=== PATIENT | male | born 1955 | race Caucasian/White ===

== ENCOUNTER 2025-08-18 00:02 | Inpatient (IN) ==
--- NOTE | 2025-08-18 00:20 | Emergency Department Note ---
History of Present Illness General Chief complaint: Abdominal Pain Stated complaint: VOMITING, RIGHT SIDE PAIN IN RIB/ABD Time Seen by Provider: 08/18/25 00:07 History of Present Illness Maximum Pain Intensity: 8 This 69-year-old male that was recently admitted for sepsis from complicated UTI with positive blood cultures pansensitive to E. coli presents to ER complaining on ongoing generalized illness now with worsening right sided upper abdominal chest pain today. Patient also had an episode of vomiting. He has been taking his antibiotics. Patient denies fever, chills, cough, congestion, urinary symptoms, flank pain, diarrhea. He states he has not been feeling well since leaving the hospital. Home Medications Medication Instructions Recorded Confirmed Type tamsulosin 0.4 mg capsule 0.4 mg PO DAILY #30 caps 12/16/24 08/18/25 Rx lisinopril 20 1 tab PO DAILY 08/08/25 08/18/25 History mg-hydrochlorothiazide 12.5 mg tablet metoprolol succinate 100 mg 100 mg PO DAILY 08/08/25 08/18/25 History tablet,extended release 24 hr vedolizumab 300 mg intravenous 0 mg IV .[id number] 08/08/25 08/18/25 History solution amoxicillin 875 mg-potassium 1 tab PO BID 12 days #25 tabs 08/10/25 08/18/25 Rx clavulanate 125 mg tablet Allergies Allergy/AdvReac Type Severity Reaction Status Date / Time No Known Allergies Allergy Unknown NONE Verified 08/18/25 00:43 Past Med/Surg History Problem List Pneumonia (Acute) Ureterolithiasis (Acute) Acute hyponatremia (Acute) PRUDENCIO (acute kidney injury) (Acute) Renal colic on right side (Acute) E. coli bacteremia Acute hyponatremia (Acute) Hypomagnesemia (Acute) Acute kidney injury Sepsis (Acute) Complicated urinary tract infection (Acute) Ulcerative colitis Erectile dysfunction (Chronic) Benign prostatic hyperplasia (BPH) with straining on urination (Chronic) Elevated PSA (Chronic) DJD of right shoulder (Chronic) Lumbar stenosis with neurogenic claudication (Chronic) Medical History Hiatal hernia Surgical History History of back surgery Family History Father Cancer Mother Hypertension Brother Heart disease Social History Smoking Status: Never smoker Hx Alcohol Use: No Hx Substance Use: No Preferred Language: Upper Sorbian Beliefs That Will Affect Care: None Current Living Situation: Spouse current occupational status: retired Feels Safe at Home: Yes Assistive Devices: Denture - Upper and Denture - Lower Review of Systems A total of 10 systems reviewed and were otherwise negative Physical Exam Vital Signs Vital Signs - 24 hr 08/18/25 00:05 08/18/25 00:28 08/18/25 00:30 Temperature 37.1 C Temperature Source Temporal Artery Scan Pulse Rate 69 74 Respiratory Rate 16 Respiratory Effort / Characteristics Non-Labored Respiratory Depth Normal Blood Pressure 142/98 H Blood Pressure Mean 112 Pulse Oximetry 97 96 Oxygen Delivery Method Room Air Room Air Sepsis Recent Fever Within 48 Hours No Sepsis New/Unexplained Change in Mental Status No Sepsis Action Taken by Nursing No Action Required 08/18/25 00:30 08/18/25 01:00 08/18/25 01:30 Temperature Temperature Source Pulse Rate 72 73 66 Respiratory Rate 13 13 15 Respiratory Effort / Characteristics Respiratory Depth Blood Pressure 159/80 H 144/76 H 125/72 Blood Pressure Mean 106 98 89 Pulse Oximetry 98 95 Oxygen Delivery Method Room Air Sepsis Recent Fever Within 48 Hours Sepsis New/Unexplained Change in Mental Status Sepsis Action Taken by Nursing 08/18/25 02:00 08/18/25 02:30 08/18/25 03:00 Temperature Temperature Source Pulse Rate 66 64 66 Respiratory Rate 12 18 16 Respiratory Effort / Characteristics Respiratory Depth Blood Pressure 122/71 120/68 136/85 Blood Pressure Mean 88 85 102 Pulse Oximetry 95 94 98 Oxygen Delivery Method Sepsis Recent Fever Within 48 Hours Sepsis New/Unexplained Change in Mental Status Sepsis Action Taken by Nursing 08/18/25 03:30 Temperature Temperature Source Pulse Rate 65 Respiratory Rate 12 Respiratory Effort / Characteristics Respiratory Depth Blood Pressure 131/75 Blood Pressure Mean 93 Pulse Oximetry 95 Oxygen Delivery Method Sepsis Recent Fever Within 48 Hours Sepsis New/Unexplained Change in Mental Status Sepsis Action Taken by Nursing VITALS: Vitals are noted on the nurse's note and reviewed by myself. Vital signs stable. GENERAL: Pleasant gentleman, in no acute distress, nondiaphoretic, well- developed well-nourished. SKIN: The skin was without rashes, erythema, edema, or bruising. There is no tenting of the skin. Capillary reflex less than 2 seconds. HEAD: Normocephalic atraumatic. EARS: External auditory canals clear EYES: Pupils equal round and reactive to light and accommodation. Conjunctivae without injection, sclerae without icterus. Extraocular movements intact. NOSE: Patent, no discharge. MOUTH: Mucous membranes moist. Pharynx without erythema or exudate. Uvula midline. Airway patent. Tongue does not deviate. NECK: Supple without nuchal rigidity. No lymphadenopathy. No thyromegaly. Cervical spine is nontender. No JVD. HEART: Regular rate and rhythm LUNGS: Clear to auscultation bilaterally without wheezes, rales or rhonchi. No retractions or accessory muscle use. ABDOMEN: Positive bowel sounds x 4. Normal tympanic percussion. Soft, tender to palpation right upper quadrant, without masses or organomegaly. No guarding or rebound tenderness. No CVA tenderness MUSCULOSKELETAL: No muscle atrophy, erythema, or edema noted. NEURO: Patient was alert and oriented to person place and time. Normal sensation to light and sharp touch. No focal neurological deficits. Course Administered Medications Discontinued Medications Sodium Chloride (Nss) 1,000 mls @ 999 mls/hr IV .Q1H1M MARYAN Stop: 08/18/25 01:30 Last Infusion: 08/18/25 01:32 Dose: Infused Documented By: Admin: 08/18/25 00:31 Dose: 999 mls/hr Documented By: SUHAS Piperacillin Sod/Tazobactam Sod (Zosyn) 4.5 gm in 100 mls @ 200 mls/hr IV NOW STA Stop: 08/18/25 00:45 Last Infusion: 08/18/25 01:05 Dose: Infused Documented By: Admin: 08/18/25 00:35 Dose: 200 mls/hr Documented By: SUHAS Acetaminophen (Ofirmev) 1,000 mg in 100 mls @ 400 mls/hr IV NOW STA Stop: 08/18/25 00:30 Last Infusion: 08/18/25 00:50 Dose: Infused Documented By: Admin: 08/18/25 00:35 Dose: 400 mls/hr Documented By: SUHAS Vancomycin HCl 1,750 mg/ (Sodium Chloride) 535 mls @ 200 mls/hr IV NOW ONE Stop: 08/18/25 03:31 Last Infusion: 08/18/25 03:12 Dose: Infused Documented By: Admin: 08/18/25 01:46 Dose: 200 mls/hr Documented By: SUHAS Sodium Chloride (Nss) 500 mls @ 999 mls/hr IV .Q31M ONE Stop: 08/18/25 02:05 Last Infusion: 08/18/25 02:20 Dose: Infused Documented By: Admin: 08/18/25 01:47 Dose: 999 mls/hr Documented By: SUHAS Ioversol (Optiray 320 125ml) 125 ml IV ONCE ONE Stop: 08/18/25 00:54 Last Admin: 08/18/25 00:53 Dose: 118 ml Documented By: KEY Morphine Sulfate (Morphine Sulfate 4 Mg/Ml 1 Ml Carp\Vial) 4 mg IV NOW STA Stop: 08/18/25 00:17 Last Admin: 08/18/25 00:35 Dose: 4 mg Documented By: SUHAS Morphine Sulfate (Morphine Sulfate 4 Mg/Ml 1 Ml Carp\Vial) 4 mg IV NOW STA Stop: 08/18/25 03:04 Last Admin: 08/18/25 03:12 Dose: 4 mg Documented By: MEL Ondansetron HCl (Ondansetron Inj 2 Mg/Ml 2 Ml Vial) 4 mg IV NOW STA Stop: 08/18/25 00:17 Last Admin: 08/18/25 00:35 Dose: 4 mg Documented By: SUHAS Medical Decision Making Medical Records Attestation: I reviewed the patient's medical records. Home Medications Current Medication List: was personally reviewed by me Laboratory Data Attestation: I reviewed the patient's lab results. 08/18/25 00:25 08/18/25 00:25 Lab Results 08/18/25 08/18/25 08/18/25 Range/Units 00:25 00:28 00:34 WBC 18.91 H (4.8-10.8) K/ul RBC 4.78 (4.70-6.10) M/uL Hgb 13.8 L (14.0-18.0) g/dL POC Hgb 14.6 (14.0-18.0) g/dl Hct 40.0 L (42.0-52.0) % POC Hct 43 (42-52) % MCV 83.7 (80.0-100.0) fL MCH 28.9 (25.0-34.0) pg MCHC 34.5 (32.0-36.0) g/dL RDW Std Deviation 39.2 (36.4-46.3) fL RDW Coeff of Simran 12.9 (11.5-14.5) % Plt Count 488 H (130-400) K/uL MPV 8.7 L (9.4-12.4) fL Immature Gran % (Auto) 1.2 % Neut % (Auto) 87.6 % Lymph % (Auto) 6.0 % [place] % (Auto) 4.7 % Eos % (Auto) 0.2 % Baso % (Auto) 0.3 % Neut # (Auto) 16.55 H (1.40-6.50) K/uL Lymph # (Auto) 1.14 L (1.20-3.40) K/uL [place] # (Auto) 0.89 H (0.11-0.59) K/uL Eos # (Auto) 0.04 (0.00-0.50) K/uL Baso # (Auto) 0.06 (0.00-0.20) K/uL Immature Gran # (Auto) 0.23 H (0.01-0.20) K/uL POC Sodium 128 L (135-144) mmol/L Sodium 126 L (136-145) mmol/L POC Potassium 4.4 (3.3-5.0) mmol/L Potassium 4.2 (3.5-5.1) mmol/L POC Chloride 94 L (101-112) mmol/L Chloride 92 L (98-107) mmol/L Carbon Dioxide 25 (21-32) mmol/L POC Total CO2 25 (24-31) mmol/L Anion Gap 9 (3-11) POC Anion Gap 15.0 L (16-25) mmol/L POC BUN 26 H (7-18) mg/dl BUN 24 H (6-23) mg/dl Creatinine 1.73 H (0.6-1.4) mg/dl POC Creatinine 1.7 H (0.6-1.3) mg/dl Est Cr Clr Drug Dosing 44.2 ml/min eGFR 42.20 BUN/Creatinine Ratio 13.9 (10-20) Glucose 137 H (70-99(Fasting)) mg/dl POC Glucose (other) 131 H (70-99) mg/dl Osmolality 274 L (280-300) mOsm/kg Lactate 1.3 (0.4-2.0) mmol/L Calcium 9.8 (8.6-10.3) mg/dl POC Ioniz Calcium Lori 1.18 (1.12-1.32) mmol/l Phosphorus 3.5 (2.5-4.9) mg/dl Magnesium 1.9 (1.7-2.4) mg/dl Total Bilirubin 0.7 (0.2-1.0) mg/dl Direct Bilirubin 0.2 (0-0.2) mg/dl AST 18 (13-39) U/L ALT 26 (7-52) U/L Alkaline Phosphatase 123 H (34-104) U/L Troponin I High Sens 6.0 (0-20) pg/ml Total Protein 7.9 (6.0-8.3) gm/dl Albumin 3.7 (3.4-5.0) gm/dl Procalcitonin 0.32 (0-0.5) ng/ml Urine Color Yellow Urine Appearance Clear (Clear) Urine pH 6.5 (4.5-7.5) Ur Specific [place] 1.015 (1.000-1.030) Urine Protein Trace H (Negative) Urine Glucose (UA) Negative (Negative) Urine Ketones Negative (Negative) Urine Blood Trace H (Negative) Urine Nitrite Negative (Negative) Urine Bilirubin Negative (Negative) Urine Urobilinogen Negative (Negative) Ur Leukocyte Esterase Trace H (Negative) Urine WBC (Auto) 0-5 (0-5) /hpf Urine RBC (Auto) 0-2 (0-2) /hpf U Hyaline Cast (Auto) 0-2 (0-2) /lpf U Epithel Cells (Auto) 0-2 (0-2) /hpf Urine Bacteria (Auto) None Seen (None Seen) Urine Osmolality 536 (500-800) mOsm/kg Urine Comment SARS-CoV-2 (PCR) (Negative) Influenza Type A (PCR) (Neg) Influenza Type B (PCR) (Neg) RSV (RT-PCR) (Neg) 08/18/25 Range/Units 03:09 WBC (4.8-10.8) K/ul RBC (4.70-6.10) M/uL Hgb (14.0-18.0) g/dL POC Hgb (14.0-18.0) g/dl Hct (42.0-52.0) % POC Hct (42-52) % MCV (80.0-100.0) fL MCH (25.0-34.0) pg MCHC (32.0-36.0) g/dL RDW Std Deviation (36.4-46.3) fL RDW Coeff of Simran (11.5-14.5) % Plt Count (130-400) K/uL MPV (9.4-12.4) fL Immature Gran % (Auto) % Neut % (Auto) % Lymph % (Auto) % [place] % (Auto) % Eos % (Auto) % Baso % (Auto) % Neut # (Auto) (1.40-6.50) K/uL Lymph # (Auto) (1.20-3.40) K/uL [place] # (Auto) (0.11-0.59) K/uL Eos # (Auto) (0.00-0.50) K/uL Baso # (Auto) (0.00-0.20) K/uL Immature Gran # (Auto) (0.01-0.20) K/uL POC Sodium (135-144) mmol/L Sodium (136-145) mmol/L POC Potassium (3.3-5.0) mmol/L Potassium (3.5-5.1) mmol/L POC Chloride (101-112) mmol/L Chloride (98-107) mmol/L Carbon Dioxide (21-32) mmol/L POC Total CO2 (24-31) mmol/L Anion Gap (3-11) POC Anion Gap (16-25) mmol/L POC BUN (7-18) mg/dl BUN (6-23) mg/dl Creatinine (0.6-1.4) mg/dl POC Creatinine (0.6-1.3) mg/dl Est Cr Clr Drug Dosing ml/min eGFR BUN/Creatinine Ratio (10-20) Glucose (70-99(Fasting)) mg/dl POC Glucose (other) (70-99) mg/dl Osmolality (280-300) mOsm/kg Lactate (0.4-2.0) mmol/L Calcium (8.6-10.3) mg/dl POC Ioniz Calcium Lori (1.12-1.32) mmol/l Phosphorus (2.5-4.9) mg/dl Magnesium (1.7-2.4) mg/dl Total Bilirubin (0.2-1.0) mg/dl Direct Bilirubin (0-0.2) mg/dl AST (13-39) U/L ALT (7-52) U/L Alkaline Phosphatase (34-104) U/L Troponin I High Sens (0-20) pg/ml Total Protein (6.0-8.3) gm/dl Albumin (3.4-5.0) gm/dl Procalcitonin (0-0.5) ng/ml Urine Color Urine Appearance (Clear) Urine pH (4.5-7.5) Ur Specific [place] (1.000-1.030) Urine Protein (Negative) Urine Glucose (UA) (Negative) Urine Ketones (Negative) Urine Blood (Negative) Urine Nitrite (Negative) Urine Bilirubin (Negative) Urine Urobilinogen (Negative) Ur Leukocyte Esterase (Negative) Urine WBC (Auto) (0-5) /hpf Urine RBC (Auto) (0-2) /hpf U Hyaline Cast (Auto) (0-2) /lpf U Epithel Cells (Auto) (0-2) /hpf Urine Bacteria (Auto) (None Seen) Urine Osmolality (500-800) mOsm/kg Urine Comment SARS-CoV-2 (PCR) NEGATIVE (Negative) Influenza Type A (PCR) Negative (Neg) Influenza Type B (PCR) Negative (Neg) RSV (RT-PCR) Negative (Neg) Imaging Data Attestation: I personally reviewed and interpreted this imaging study as follows: Radiologist's Impression: Abdomen/Pelvis CT 08/18/25 00:16 EXAM: CT abd pelvis IV con only CLINICAL HISTORY: right abd pain, recent urosepsis TECHNIQUE: Multiple contiguous axial images were obtained from the level of diaphragm to the pubis symphysis. This study was acquired after the IV administration of iodinated contrast material, given the patient's indications for the examination. If IV contrast material had not been administered, the likelihood of detecting abnormalities relevant to the patient's condition would have been substantially decreased. Coronal and sagittal reformatted images were generated and reviewed to improve anatomic localization and optimize lesion detection. CT scan was performed according to ALARA (as low as reasonably achievable). COMPARISON: 08/08/2025 FINDINGS: The visualized lung bases are clear. ABDOMEN/PELVIS: The liver is normal in size and attenuation. No focal liver lesions are seen. There is no intra or extrahepatic biliary ductal dilatation. Hepatic vasculature is patent. The gallbladder is unremarkable. The spleen, pancreas, and adrenal glands are unremarkable. The kidneys are normal in size and attenuation. There is no hydronephrosis or perinephric fat stranding on left side. No renal masses are identified. The ureters are normal in caliber and no ureteral calculi are seen. Sliding hiatal hernia with sliding of omental into mediastinum. Fat containing bilateral inguinal hernias, more so on left side. A partially distended urinary bladder with diffuse mural wall thickening with mild perivascular fat stranding - likely appliance service representative of an ongoing infective etiology, suggest lab correlation. Evidence of an approximately 7.8 x 5.4 mm radiodense calculus in right pelviureteric junction with mild right hydronephrosis and perinephric fat stranding - suggestive of obstructive pelviureteric junction calculus with mild back pressure changes. Approximately 9.4 mm calculus noted in lower pole of left kidney. Tiny subcentimetric hypodense cysts are noted in bilateral kidneys. No evidence of focal or diffuse bowel wall thickening or evidence of bowel obstruction is seen. No features of appendicitis. Pelvic viscera are unremarkable No adenopathy or fluid collections are seen. The aorta is normal in caliber. No aggressive appearing osseous lesions are identified. Degenerative changes in visualised spine.stable. Post operative changes in lower spine. IMPRESSION: Sliding hiatal hernia with sliding of omental into mediastinum.stable Fat containing bilateral uncomplicated inguinal hernias, more so on left side.stable A partially distended urinary bladder with diffuse mural wall thickening with mild perivascular fat stranding - likely appliance service representative of an ongoing infective etiology, suggest lab correlation. Evidence of an approximately 7.8 x 5.4 mm radiodense calculus in right pelviureteric junction with mild right hydronephrosis and perinephric fat stranding - suggestive of obstructive pelviureteric junction calculus with mild back pressure changes.new finding Approximately 9.4 mm calculus noted in lower pole of left kidney.stable Tiny subcentimetric hypodense cysts are noted in bilateral kidneys.stable Electronically signed by Josias Perez 08-18-2025 02:45 AM Chest CTA 08/18/25 00:16 EXAM: CT angio chest PE protocol CLINICAL HISTORY: PE TECHNIQUE: Contiguous axial images were obtained from the neck base through the upper abdomen following intravenous administration of iodinated contrast material. Angiographic images were processed, 3D MIP images were acquired for interpretation. If IV contrast material had not been administered, the likelihood of detecting abnormalities relevant to the patient's condition would have been substantially decreased. Coronal and sagittal 3-D MIPs were likewise performed and indicated to increase the sensitivity of detectin diffuse clinically relevant pathology. CT scan was performed according to ALARA (as low as reasonably achievable). COMPARISON: None. FINDINGS: Adequate contrast bolus without evidence of pulmonary embolism. The central airways are patent. Few subcentimetric calcifications in left upper and bilateral lower lobes A patchy area of subpleural soft tissue opacity in right upper lobe with tiny ground glass opacities adjacnet to it- could be of infective etiology Few bibasal atelectasis bands Rest of the lungs are clear. No pleural effusion. The heart, aorta, and pulmonary arteries are of normal size and configuration. There are coronary artery and aortic atherosclerotic calcifications. No pericardial effusion is identified. The thyroid is unremarkable. Few mildly enlarged mediastinal and hilar lymphnodes noted, largest measuring ~[id number] in precarinal region and few of them shows calcifications within No axillary lymphadenopathy is noted. No suspicious lytic or sclerotic osseous lesions are identified. Degenerative changes in visualised spine Sliding hiatal hernia IMPRESSION: No evidence of pulmonary embolism A patchy area of subpleural soft tissue opacity in right upper lobe with tiny ground glass opacities adjacnet to it- could be of infective etiology. Few bibasal atelectasis bands Few mildly enlarged mediastinal and bilateral hilar lymphnodes noted, largest measuring ~[id number] in precarinal region and few of them shows calcifications within. Few subcentimetric calcifications in left upper and bilateral lower lobes Electronically signed by Josias Perez 08-18-2025 02:49 AM Chest X-Ray 08/18/25 00:16 EXAM: XR chest 1V portable CLINICAL HISTORY: Sepsis TECHNIQUE: An X-ray image of the chest is obtained in AP projection. COMPARISON: 08/08/2025. FINDINGS: Pulmonary Parenchyma: Multiple nodules were noted at the left mid and upper lung zones, less than 5 mm in diameter. No evidence of consolidation or collapse. No evidence of pleural effusion or pleural thickening. Heart and Mediastinum: Heart size and shape are normal. No mediastinal widening or masses. No hilar or mediastinal lymphadenopathy. Bony Thorax: Bony thorax appears intact without fractures or deformities. 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 Soft Tissues: Soft tissues overlying the chest wall are unremarkable. IMPRESSION: 1. No acute cardiopulmonary abnormalities are identified. 2. Multiple calcified nodules were noted at the left mid and upper lung zones, less than 5 mm in diameter. Unchanged. These are benign. 3. No significant interval changes are noted compared with the prior study. Electronically signed by Gurnider Mcfarlane 08-18-2025 02:34 AM MDM Narrative Prior records/ancillary studies reviewed. Triage Nursing notes reviewed. Additional history obtained from family. The patient's history was concerning for abdominal pain with recent bacteremia and sepsis from UTI. Differential diagnosis: Etiologies such as sepsis, bacteremia, pulmonary, cardiac, appendicitis, diverticulitis, PUD, biliary pathology, UTI, pancreatitis, obstruction, mesenteric ischemia, aortic pathology, infections, inflammatory bowel disease, renal colic, as well as others were entertained. Physical examination findings: As above. ER treatment provided: An order was placed for continuous cardiac monitoring. The monitor shows a rate of 60-100 with a sinus rhythm per my Independent interpretation. Zosyn, Zofran, Tylenol, morphine, IV fluids were ordered Vancomycin was added and as patient had a leukocytosis which is new from discharge for possible MRSA infection with recent hospitalization On reassessment the patient felt better. Diagnostics interpreted by me: ECG: Ordered for weakness EKG: Normal sinus, normal intervals, no acute ST-T wave changes, rate of 69. Impression normal sinus rhythm independently interpreted by myself I think arrhythmia is unlikely. EKG shows normal sinus rhythm with no interval abnormalities such as QT prolongation or WPW. There are no findings to suggest Brugada syndrome. Cardiac monitoring in the emergency department reveals no tachycardic or bradycardic dysrhythmia. Hypertrophic cardiomyopathy was considered but there are no clear historical elements pointing toward this. EKG is not suggestive. The QRS voltage is not extremely large and there are no suggestive Q waves. The labs Independently Interpreted by myself revealed leukocytosis, hyponatremia and osmolarity levels were sent, creatinine slightly elevated from baseline and patient was hydrated as above neg lactic neg UA neg covid/flu Blood cultures pending [facility] [address] [place] [address] / Director: Cheryl Almeida M.D. Clinical Laboratory Report Name: JOE GOTTLIEB Acct: [id number] Status: [place] : 1955 [facility] [place] 10[place]09[place] Age: 69 Sex: M Dis Date: 10/11/24 Loc: [address] Rm/Bed: [facility] Spec: [id number] Collected: 08/08/25-1207 Received: 08/08/25-[address]: Renato Cook M.D. Source: Blood OV Order: Ordered: Blood Culture Procedure Result Verified Site Blood Culture Aerobic Final 08/10/25-1006 Organism 1 Escherichia coli Sens Sensitivities to Follow Blood Culture PCR Panel If viewing in EMR, results available under LAB Serology tab. Phoned positive Blood Culture Gram Stain report to RIZWANA CLEMONS on 08/09/25 at 0029 by [id number]. [place] [id number]. E coli RX M.I.C. --- --------- Amikacin S <=16 Amox/Clav S <=8/4 Ampicillin S <=8 Amp/Sul S <=4/2 Cefazolin S <=2 Cefepime S <=2 Cefotaxime S <=2 Cefoxitin S <=8 Ceftriaxone S <=1 Cefuroxime S <=4 Ciprofloxacin S <=0.25 Ertapenem S <=0.5 Gentamicin S <=2 Levofloxacin S <=0.5 Meropenem S <=1 Tobramycin S <=2 Trimeth/Sulfa S <=0.5/9.5 Pip/Tazo S <=8 S = SENSITIVE I = INTERMEDIATE R = RESISTANT Blood Culture Anaerobic Final 08/10/25-1006 Organism 1 Escherichia coli Sens No Sensitivities to Follow [address], [place] [address] / Director: Cheryl Almeida M.D. Clinical Laboratory Report Name: JOE GOTTLIEB Acct: [id number] Status: DIS [place] : 1955 [facility] [place] 1 10/09/24 Age: 69 Sex: M Dis Date: 10/11/24 Loc: [address]/Bed: N[facility] Spec: [id number] Collected: 08/08/25-UNK Received: 08/08/25-[address]: Renato Cook M.D. Source: Urine,Clean Catch OV Order: Ordered: Urine Culture Procedure Result Verified Site Urine Culture Final 08/10/25-0857 Organism 1 Escherichia coli [place] Count >100,000 CFU/ml Sens Sensitivities to Follow E coli RX M.I.C. --- --------- Amikacin S <=16 Amox/Clav S <=8/4 Ampicillin S <=8 Amp/Sul S <=4/2 Cefazolin S <=2 Cefepime S <=2 Cefotaxime S <=2 Cefoxitin S <=8 Ceftriaxone S <=1 Cefuroxime S <=4 Ciprofloxacin S <=0.25 Ertapenem S <=0.5 Gentamicin S <=2 Levofloxacin S <=0.5 Meropenem S <=1 Nitrofurantoin S <=32 Tobramycin S <=2 Trimeth/Sulfa S <=0.5/9.5 Pip/Tazo S <=8 S = SENSITIVE I = INTERMEDIATE R = RESISTANT Imaging studies: Imaging was reviewed and read by radiology Consultation: A consultation was placed with the hospitalist. The case was discussed and diagnostics were reviewed. The patient was evaluated in the ER for further treatment. Consultation was placed with urology and TIMOTHY Markus did evaluate the patient. Patient was admitted to the medical service. Exam and history seem consistent with recent bacteremia with an active kidney stone and possible developing pneumonia. Patient also had a mild PRUDENCIO and leukocytosis with a shift. He was given antibiotics upon initial evaluation with his recent bacteremia. Medicine was consultedand the case was discussed. He will be evaluated for admission. By the evaluation outlined above emergent etiologies such as appendicitis, diverticulitis, PUD, biliary pathology pancreatitis, obstruction, mesenteric ischemia, aortic pathology, inflammatory bowel disease as well as others were deemed relatively unlikely. The pt informed about the findings as listed above. All questions were answered and pleased with the treatment. The chart was completed utilizing [email or web address] Speech voice recognition software. Grammatical errors, random word insertions, pronoun errors, and incomplete sentences are an occassional consequence of this system due to software limitations, ambient noise, and hardware issues. Any formal questions or concerns about the content, text, or information contained within the body of this dictation should be directly addressed to the physician assistant public defender for clarification. Impression & Plan Renal colic on right side, PRUDENCIO (acute kidney injury), Acute hyponatremia, Ureterolithiasis, Pneumonia Discharge Plan Visit Data Chief Complaint: Abdominal Pain Stated Complaint: VOMITING, RIGHT SIDE PAIN IN RIB/ABD ED Provider: Amarjit Ratl[facility] ED Midlevel Provider: Katy Mazariegos Discharge Problem: Renal colic on right side, PRUDENCIO (acute kidney injury), Acute hyponatremia, Ureterolithiasis, Pneumonia Patient Disposition: Admitted As Inpatient Condition: Fair Forms Stand Alone Forms: My [facility] Qire Prescriptions Prescriptions: No Action tamsulosin 0.4 mg capsule 0.4 mg PO DAILY Qty: 30 11RF lisinopril-hydrochlorothiazide 20-12.5 mg tablet 1 tab PO DAILY metoprolol succinate 100 mg tablet extended release 24 hr 100 mg PO DAILY vedolizumab 300 mg Recon Soln 0 mg IV .[id number] amoxicillin-pot clavulanate 875-125 mg tablet 1 tab PO BID 12 Days Qty: 25 0RF Rx Instructions: STARTED 08/10/25 FOR 12 DAYS. Referrals Referrals: Kenny Najera [Primary Care Provider] -
[2025-08-18] MEDS: SODIUM CHLORIDE 0.9% 1,000 ML IV SCH (00:31)
[2025-08-18] MEDS: PIPERACILLIN/TAZOBACTAM 4.5 GM/100 ML BAG IV STA (00:35)
[2025-08-18] MEDS: MoRPHine SULFATE 4 MG/ML 1 ML CARP\\VIAL IV STA ×2 (00:35→03:12)
[2025-08-18] MEDS: ACETAMINOPHEN 1,000 MG/100 ML VIAL IV STA (00:35)
[2025-08-18] MEDS: ONDANSETRON INJ 2 MG/ML 2 ML VIAL IV STA (00:35)
[2025-08-18 00:48] LABS: Appearance Urine Clear (Clear); Bacteria Urine Automated None Seen (None Seen); Cast Urine Automated 0-2 /lpf (0-2); Epithelial Cell Urine Auto 0-2 /hpf (0-2); Glucose Urine UA Negative (Negative); RBC Urine Automated 0-2 /hpf (0-2); WBC Urine Automated 0-5 /hpf (0-5)
[2025-08-18 00:49] LABS: Hematocrit (blood only) 40.0 % (42.0-52.0); Hemoglobin 13.8 g/dL (14.0-18.0); Immature Granulocytes # (auto) 0.23 K/uL (0.01-0.20); Immature Granulocytes % (auto) 1.2 %; Mean Corpuscular Hemoglobin 28.9 pg (25.0-34.0); Mean Corpuscular Volume 83.7 fL (80.0-100.0); Platelet Count 488 K/uL (130-400); RDW Standard Deviation 39.2 fL (36.4-46.3); Red Blood Count 4.78 M/uL (4.70-6.10); White Blood Count 18.91 K/ul (4.8-10.8)
[2025-08-18] MEDS ORDERED: VANCOMYCIN CONSULT ACTIVE PRN (00:51)
[2025-08-18] MEDS: OPTIRAY 320 125ml IV ONE (00:53)
[2025-08-18 01:19] LABS: Alanine Aminotransferase 26.0 U/L (7-52); Albumin Level 3.7 gm/dl (3.4-5.0); Alkaline Phosphatase 123.0 U/L (34-104); Anion Gap 9.0 (3-11); Bilirubin,Total 0.7 mg/dl (0.2-1.0); Blood Urea Nitrogen 24.0 mg/dl (6-23); Calcium 9.8 mg/dl (8.6-10.3); Carbon Dioxide 25.0 mmol/L (21-32); Chloride 92.0 mmol/L (98-107); Creatinine Clr Calc Pharmacy 44.2 ml/min; Glucose 137.0 mg/dl (70-99(Fasting)); Magnesium 1.9 mg/dl (1.7-2.4); Potassium 4.2 mmol/L (3.5-5.1); Sodium 126.0 mmol/L (136-145); Total Protein 7.9 gm/dl (6.0-8.3)
[2025-08-18] MEDS: VANCOMYCIN HCL 1,750 MG in SODIUM CHLORIDE 0.9% 500 ML IV ONE (01:46)
[2025-08-18] MEDS: SODIUM CHLORIDE 0.9% 500 ML IV ONE (01:47)
--- NOTE | 2025-08-18 02:35 | XRay Report ---
EXAM: XR chest 1V portable CLINICAL HISTORY: Sepsis TECHNIQUE: An X-ray image of the chest is obtained in AP projection. COMPARISON: 08/08/2025. FINDINGS: Pulmonary Parenchyma: Multiple nodules were noted at the left mid and upper lung zones, less than 5 mm in diameter. No evidence of consolidation or collapse. No evidence of pleural effusion or pleural thickening. Heart and Mediastinum: Heart size and shape are normal. No mediastinal widening or masses. No hilar or mediastinal lymphadenopathy. Bony Thorax: Bony thorax appears intact without fractures or deformities. 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 Soft Tissues: Soft tissues overlying the chest wall are unremarkable. IMPRESSION: 1. No acute cardiopulmonary abnormalities are identified. 2. Multiple calcified nodules were noted at the left mid and upper lung zones, less than 5 mm in diameter. Unchanged. These are benign. 3. No significant interval changes are noted compared with the prior study. Electronically signed by Gurinder Mcfarlane 08-18-2025 02:34 AM
--- NOTE | 2025-08-18 02:46 | CT Scan Report ---
EXAM: CT abd pelvis IV con only CLINICAL HISTORY: right abd pain, recent urosepsis TECHNIQUE: Multiple contiguous axial images were obtained from the level of diaphragm to the pubis symphysis. This study was acquired after the IV administration of iodinated contrast material, given the patient's indications for the examination. If IV contrast material had not been administered, the likelihood of detecting abnormalities relevant to the patient's condition would have been substantially decreased. Coronal and sagittal reformatted images were generated and reviewed to improve anatomic localization and optimize lesion detection. CT scan was performed according to ALARA (as low as reasonably achievable). COMPARISON: 08/08/2025 FINDINGS: The visualized lung bases are clear. ABDOMEN/PELVIS: The liver is normal in size and attenuation. No focal liver lesions are seen. There is no intra or extrahepatic biliary ductal dilatation. Hepatic vasculature is patent. The gallbladder is unremarkable. The spleen, pancreas, and adrenal glands are unremarkable. The kidneys are normal in size and attenuation. There is no hydronephrosis or perinephric fat stranding on left side. No renal masses are identified. The ureters are normal in caliber and no ureteral calculi are seen. Sliding hiatal hernia with sliding of omental into mediastinum. Fat containing bilateral inguinal hernias, more so on left side. A partially distended urinary bladder with diffuse mural wall thickening with mild perivascular fat stranding - likely small business representative of an ongoing infective etiology, suggest lab correlation. Evidence of an approximately 7.8 x 5.4 mm radiodense calculus in right pelviureteric junction with mild right hydronephrosis and perinephric fat stranding - suggestive of obstructive pelviureteric junction calculus with mild back pressure changes. Approximately 9.4 mm calculus noted in lower pole of left kidney. Tiny subcentimetric hypodense cysts are noted in bilateral kidneys. No evidence of focal or diffuse bowel wall thickening or evidence of bowel obstruction is seen. No features of appendicitis. Pelvic viscera are unremarkable No adenopathy or fluid collections are seen. The aorta is normal in caliber. No aggressive appearing osseous lesions are identified. Degenerative changes in visualised spine.stable. Post operative changes in lower spine. IMPRESSION: Sliding hiatal hernia with sliding of omental into mediastinum.stable Fat containing bilateral uncomplicated inguinal hernias, more so on left side.stable A partially distended urinary bladder with diffuse mural wall thickening with mild perivascular fat stranding - likely small business representative of an ongoing infective etiology, suggest lab correlation. Evidence of an approximately 7.8 x 5.4 mm radiodense calculus in right pelviureteric junction with mild right hydronephrosis and perinephric fat stranding - suggestive of obstructive pelviureteric junction calculus with mild back pressure changes.new finding Approximately 9.4 mm calculus noted in lower pole of left kidney.stable Tiny subcentimetric hypodense cysts are noted in bilateral kidneys.stable Electronically signed by Josias Perez 08-18-2025 02:45 AM
--- NOTE | 2025-08-18 02:49 | CT Scan Report ---
EXAM: CT angio chest PE protocol CLINICAL HISTORY: PE TECHNIQUE: Contiguous axial images were obtained from the neck base through the upper abdomen following intravenous administration of iodinated contrast material. Angiographic images were processed, 3D MIP images were acquired for interpretation. If IV contrast material had not been administered, the likelihood of detecting abnormalities relevant to the patient's condition would have been substantially decreased. Coronal and sagittal 3-D MIPs were likewise performed and indicated to increase the sensitivity of detectin diffuse clinically relevant pathology. CT scan was performed according to ALARA (as low as reasonably achievable). COMPARISON: None. FINDINGS: Adequate contrast bolus without evidence of pulmonary embolism. The central airways are patent. Few subcentimetric calcifications in left upper and bilateral lower lobes A patchy area of subpleural soft tissue opacity in right upper lobe with tiny ground glass opacities adjacnet to it- could be of infective etiology Few bibasal atelectasis bands Rest of the lungs are clear. No pleural effusion. The heart, aorta, and pulmonary arteries are of normal size and configuration. There are coronary artery and aortic atherosclerotic calcifications. No pericardial effusion is identified. The thyroid is unremarkable. Few mildly enlarged mediastinal and hilar lymphnodes noted, largest measuring ~[id number] in precarinal region and few of them shows calcifications within No axillary lymphadenopathy is noted. No suspicious lytic or sclerotic osseous lesions are identified. Degenerative changes in visualised spine Sliding hiatal hernia IMPRESSION: No evidence of pulmonary embolism A patchy area of subpleural soft tissue opacity in right upper lobe with tiny ground glass opacities adjacnet to it- could be of infective etiology. Few bibasal atelectasis bands Few mildly enlarged mediastinal and bilateral hilar lymphnodes noted, largest measuring ~[id number] in precarinal region and few of them shows calcifications within. Few subcentimetric calcifications in left upper and bilateral lower lobes Electronically signed by Josias Perez 08-18-2025 02:49 AM
--- NOTE | 2025-08-18 03:16 | History & Physical Report ---
Date of Service August 18, 2025 Assessment & Plan (1) Hydronephrosis with obstructing calculus: (2) PRUDENCIO (acute kidney injury): (3) Hyponatremia: (4) Pneumonia: Plan 69-year-old male PMHx lumbar stenosis with claudication, BPH, ED, UC, recent E. coli bacteremia, and recent sepsis presenting for R sided abdominal pain. Most recent hospital admission 08/08/2025. Evaluation significant for evidence of leukocytosis with normal lactate and procal. Hyponatremia noted. Renal functions are elevated. Imaging suggest ? PNA developing as well as R sided hydronephrosis with perinephric fat stranding. Admission for pain management, IV abx, management PRUDENCIO and hyponatremia. #Hydronephrosis/Perinephric fat stranding/PRUDENCIO RUQ/R flank pain starting day of arrival. Recent sepsis from UTI, also E. coli bacteremic during hospital admission 08/08/2025 until 08/10/2025. Been taking Augmentin since discharge for completed course of treatment. No LUTS. Perinephric fat stranding noted, ? 2/2 obstruction versus developing pyelonephritis. Will cover with IV antibiotics regardless. Admission also for further pain control, as well as PRUDENCIO. - CBC WBC 18.91; CMP creatinine 1.73, BUN 24; lactate 1.3; procalcitonin 0.32 - BMP am - UA negative for infection - CTAP partially distended urinary bladder wall thickening and mild perivascular fat stranding, calculus R pelvic ureteric junction and mild right hydronephrosis and perinephric fat stranding, calculus lower pole L kidney - NPO - IVF LR @ 125 mL/hr - Zofran prn N/V - Acetaminophen prn fever/pain, morphine prn severe pain - Zosyn IV - continue - Urology consulted - appreciate input + recs #Hyponatremia Decreased intake recently and illness. In setting of PRUDENCIO. - Na 126, glucose 137 - Serum osmol 274, Urine Na pending, Urine Osmol 536 - Hold lisinopril-HCTZ - NaCl tablets 1 g po BID initiated - IVF as above #? PNA Patient with nonproductive cough starting day after his most recent discharge. No history of COVID. No additional URI symptoms, no F/C. ? PNA. - CBC leukocytosis 18.91, lactate 1.3, procalcitonin 0.32 - COVID/flu/RSV negative - CXR no acute findings, calcified nodules left mid and upper lung zones (benign, unchanged) - Chest CTA no PE, patchy area subpleural soft tissue opacity RUL with ground glass opacities (+/- infective), bibasal atelectatic bands, few calcifications left upper and bilateral lower lobes - IS - DuoNebs prn - Abx as above - adjust as appropriate #HTN- Lisinopril-HCTZ, metoprolol - hold lisinopril-HCTZ at time of admission, continue metoprolol #BPH- Tamsulosin - continue #UC- Vedolizumab [id number] Dispo: Admit, PCU VTE Prophylaxis: SCDs This document was dictated utilizing [employer]. Please excuse any grammatical errors that may be secondary to use of this software. Admission and Anticipated Discharge Date Admission Date: 08/18/2025 History of Present Illness Chief Complaint: Abd pain Primary Care Provider: Kenny Najera 69-year-old male PMHx lumbar stenosis with claudication, BPH, ED, UC, recent E. coli bacteremia, and recent sepsis presenting for R sided abdominal pain. Most recent hospital admission 08/08/2025. Reports onset of abdominal pain in the RUQ/R flank starting night of arrival. States that it started to wrap around to his back. Rates it a 10 out of 10 at its worst on the pain scale, currently 3 out of 10 on the pain scale. Describes it as sharp pain that is constant. He did have nausea all day and 1 episode of vomiting. No fever or chills, no change in bowel habits. He is without LUTS. He is still taking his antibiotics which were prescribed at discharge. Reports that he is coughing, no sputum production. No URI symptoms. The cough started the day after he was discharged from the hospital most recently. Without chest pain, SOB, palpitations, diarrhea/constipation, URI symptoms, LUTS, numbness/tingling, fever/chills, syncope, weakness, or falls. ED evaluation reveals CBC leukocytosis 18.91, H/H 13.8/40.0, plt 488; CMP Na 126, Cl 92, BUN 24, Cr 1.73, glucose 137, alk phos 123; lactate 1.3, procal 0.32; Mg 1.9, Ca 9.8, Phosphorus 3.5; serum osmol 274, urine osmol 536; UA without infection; CXR no acute findings, multiple calcified nodules L mid and upper lungs (benign, unchanged); Chest CTA no PE, RUL patchy area of subpleural soft tissue opacity (? infectious), bibasilar atelectatic bands, enlarged mediastinal/bilateral hilar lymph nodes with some calcifications within, few subcentimetric calcifications L upper and bilateral lower lobes; CTAP sliding hiatal hernia (stable), uncomplicated bilateral inguinal hernias L > R (stable), partially distended urinary bladder/thickening/perivascular fat stranding (infective, ongoing), calculus in R pelviureteric junction mild R hydronephrosis and perinephric fat stranding, calculus lower pole L kidney, hypodense cysts bilateral kidneys (stable).; Provided with 1.5L NSS, Zosyn 4.5g IV, Zofran 4mg IV, morphine 4mg IV x 2, and acetaminophen 1g IV in ED. Please see Dr. Thompson's attestation for adjustments/additions to treatment plan. Allergies Allergy/AdvReac Type Severity Reaction Status Date / Time No Known Allergies Allergy Unknown NONE Verified 08/18/25 12:34 Home Medications Medication Instructions Recorded Confirmed Type tamsulosin 0.4 mg capsule 0.4 mg PO DAILY #30 caps 12/16/24 08/18/25 Rx lisinopril 20 1 tab PO DAILY 08/08/25 08/18/25 History mg-hydrochlorothiazide 12.5 mg tablet metoprolol succinate 100 mg 100 mg PO DAILY 08/08/25 08/18/25 History tablet,extended release 24 hr vedolizumab 300 mg intravenous 0 mg IV .[id number] 08/08/25 08/18/25 History solution amoxicillin 875 mg-potassium 1 tab PO BID 12 days #25 tabs 08/10/25 08/18/25 Rx clavulanate 125 mg tablet Past Med/Surg History Problem List (Updated 08/18/25 @ 12:43 by Brayan Small DO) Encounter for pre-operative examination Renal calculus, left Hyponatremia Hydronephrosis with obstructing calculus Pneumonia (Acute) Ureterolithiasis (Acute) Acute hyponatremia (Acute) PRUDENCIO (acute kidney injury) (Acute) Renal colic on right side (Acute) E. coli bacteremia Acute hyponatremia (Acute) Hypomagnesemia (Acute) Acute kidney injury Sepsis (Acute) Complicated urinary tract infection (Acute) Ulcerative colitis Erectile dysfunction (Chronic) Benign prostatic hyperplasia (BPH) with straining on urination (Chronic) Elevated PSA (Chronic) DJD of right shoulder (Chronic) Lumbar stenosis with neurogenic claudication (Chronic) Medical History Hiatal hernia Surgical History History of back surgery Family History Father Cancer Mother Hypertension Brother Heart disease Social History Smoking Status: Never smoker Hx Alcohol Use: No Hx Substance Use: No Preferred Language: Afghan Communication Ability: Effective Sole Skiver Required: No Beliefs That Will Affect Care: None Current Living Situation: Spouse current occupational status: retired Other Information That Helps Us Care for You: No Feels Safe at Home: Yes Safety Concerns: Feels Safe At This Time Assistive Devices: Denture - Upper and Denture - Lower Review of Systems Review of Systems: All systems reviewed & are unremarkable except as noted in Subjective Physical Exam Physical Exam: General: No acute distress Skin: Warm and dry Head: Normocephalic, atraumatic Eyes: PERRL, conjunctivae clear, sclera non-icteric ENT: External ear and ear canal without swelling; nose atraumatic; good dentition, tongue normal appearance, pharynx normal Neck: Supple, no LAD Cardio: RRR, no M/G/R, S1 and S2 normal Resp: No respiratory distress, Lungs CTA in all lobes bilaterally, no wheezes, rales, or rhonchi Abdomen: Soft, symmetric, tenderness to palpation in RUQ, no peritoneal signs; No masses or hepatosplenomegaly; Bowel sounds normoactive MSK: No deformities; pulses palpable and equal; no edema. Neuro: Awake, alert; Sensation intact bilaterally; CN grossly intact Psych: Appropriate mood and affect; good judgement and insight. present in room at time of visit. Results & Data Results & Data Vital Signs (Past 12 Hours) Vital Signs Temp Pulse Resp BP Pulse Ox O2 Del Method 08/18/25 01:00 73 13 144/76 H 98 Room Air 08/18/25 00:30 72 13 159/80 H 08/18/25 00:30 96 Room Air 08/18/25 00:28 74 08/18/25 00:05 37.1 C 69 16 142/98 H 97 Room Air Laboratory Results 08/18/25 00:25 Aerobic Blood Culture - Pending Blood Anaerobic Blood Culture - Pending 08/18/25 00:25 Aerobic Blood Culture - Pending Blood Anaerobic Blood Culture - Pending 08/18/25 08/18/25 08/18/25 00:34 00:28 00:25 WBC 18.91 H RBC 4.78 Hgb 13.8 L POC Hgb 14.6 Hct 40.0 L POC Hct 43 MCV 83.7 MCH 28.9 MCHC 34.5 RDW Std Deviation 39.2 RDW Coeff of Simran 12.9 Plt Count 488 H MPV 8.7 L Immature Gran % (Auto) 1.2 Neut % (Auto) 87.6 Lymph % (Auto) 6.0 [place] % (Auto) 4.7 Eos % (Auto) 0.2 Baso % (Auto) 0.3 Neut # (Auto) 16.55 H Lymph # (Auto) 1.14 L [place] # (Auto) 0.89 H Eos # (Auto) 0.04 Baso # (Auto) 0.06 Immature Gran # (Auto) 0.23 H POC Sodium 128 L Sodium 126 L POC Potassium 4.4 Potassium 4.2 POC Chloride 94 L Chloride 92 L Carbon Dioxide 25 POC Total CO2 25 Anion Gap 9 POC Anion Gap 15.0 L POC BUN 26 H BUN 24 H Creatinine 1.73 H POC Creatinine 1.7 H Est Cr Clr Drug Dosing 44.2 eGFR 42.20 BUN/Creatinine Ratio 13.9 Glucose 137 H POC Glucose (other) 131 H Osmolality 274 L Lactate 1.3 Calcium 9.8 POC Ioniz Calcium Lori 1.18 Phosphorus 3.5 Magnesium 1.9 Total Bilirubin 0.7 Direct Bilirubin 0.2 AST 18 ALT 26 Alkaline Phosphatase 123 H Troponin I High Sens 6.0 Total Protein 7.9 Albumin 3.7 Procalcitonin 0.32 Urine Color Yellow Urine Appearance Clear Urine pH 6.5 Ur Specific [place] 1.015 Urine Protein Trace H Urine Glucose (UA) Negative Urine Ketones Negative Urine Blood Trace H Urine Nitrite Negative Urine Bilirubin Negative Urine Urobilinogen Negative Ur Leukocyte Esterase Trace H Urine WBC (Auto) 0-5 Urine RBC (Auto) 0-2 U Hyaline Cast (Auto) 0-2 U Epithel Cells (Auto) 0-2 Urine Bacteria (Auto) None Seen Urine Osmolality 536 Urine Comment Diagnostic Findings Abdomen/Pelvis CT 08/18/25 00:16 EXAM: CT abd pelvis IV con only CLINICAL HISTORY: right abd pain, recent urosepsis TECHNIQUE: Multiple contiguous axial images were obtained from the level of diaphragm to the pubis symphysis. This study was acquired after the IV administration of iodinated contrast material, given the patient's indications for the examination. If IV contrast material had not been administered, the likelihood of detecting abnormalities relevant to the patient's condition would have been substantially decreased. Coronal and sagittal reformatted images were generated and reviewed to improve anatomic localization and optimize lesion detection. CT scan was performed according to ALARA (as low as reasonably achievable). COMPARISON: 08/08/2025 FINDINGS: The visualized lung bases are clear. ABDOMEN/PELVIS: The liver is normal in size and attenuation. No focal liver lesions are seen. There is no intra or extrahepatic biliary ductal dilatation. Hepatic vasculature is patent. The gallbladder is unremarkable. The spleen, pancreas, and adrenal glands are unremarkable. The kidneys are normal in size and attenuation. There is no hydronephrosis or perinephric fat stranding on left side. No renal masses are identified. The ureters are normal in caliber and no ureteral calculi are seen. Sliding hiatal hernia with sliding of omental into mediastinum. Fat containing bilateral inguinal hernias, more so on left side. A partially distended urinary bladder with diffuse mural wall thickening with mild perivascular fat stranding - likely automobile sales representative of an ongoing infective etiology, suggest lab correlation. Evidence of an approximately 7.8 x 5.4 mm radiodense calculus in right pelviureteric junction with mild right hydronephrosis and perinephric fat stranding - suggestive of obstructive pelviureteric junction calculus with mild back pressure changes. Approximately 9.4 mm calculus noted in lower pole of left kidney. Tiny subcentimetric hypodense cysts are noted in bilateral kidneys. No evidence of focal or diffuse bowel wall thickening or evidence of bowel obstruction is seen. No features of appendicitis. Pelvic viscera are unremarkable No adenopathy or fluid collections are seen. The aorta is normal in caliber. No aggressive appearing osseous lesions are identified. Degenerative changes in visualised spine.stable. Post operative changes in lower spine. IMPRESSION: Sliding hiatal hernia with sliding of omental into mediastinum.stable Fat containing bilateral uncomplicated inguinal hernias, more so on left side.stable A partially distended urinary bladder with diffuse mural wall thickening with mild perivascular fat stranding - likely automobile sales representative of an ongoing infective etiology, suggest lab correlation. Evidence of an approximately 7.8 x 5.4 mm radiodense calculus in right pelviureteric junction with mild right hydronephrosis and perinephric fat stranding - suggestive of obstructive pelviureteric junction calculus with mild back pressure changes.new finding Approximately 9.4 mm calculus noted in lower pole of left kidney.stable Tiny subcentimetric hypodense cysts are noted in bilateral kidneys.stable Electronically signed by Josias Perez 08-18-2025 02:45 AM Chest CTA 08/18/25 00:16 EXAM: CT angio chest PE protocol CLINICAL HISTORY: PE TECHNIQUE: Contiguous axial images were obtained from the neck base through the upper abdomen following intravenous administration of iodinated contrast material. Angiographic images were processed, 3D MIP images were acquired for interpretation. If IV contrast material had not been administered, the likelihood of detecting abnormalities relevant to the patient's condition would have been substantially decreased. Coronal and sagittal 3-D MIPs were likewise performed and indicated to increase the sensitivity of detectin diffuse clinically relevant pathology. CT scan was performed according to ALARA (as low as reasonably achievable). COMPARISON: None. FINDINGS: Adequate contrast bolus without evidence of pulmonary embolism. The central airways are patent. Few subcentimetric calcifications in left upper and bilateral lower lobes A patchy area of subpleural soft tissue opacity in right upper lobe with tiny ground glass opacities adjacnet to it- could be of infective etiology Few bibasal atelectasis bands Rest of the lungs are clear. No pleural effusion. The heart, aorta, and pulmonary arteries are of normal size and configuration. There are coronary artery and aortic atherosclerotic calcifications. No pericardial effusion is identified. The thyroid is unremarkable. Few mildly enlarged mediastinal and hilar lymphnodes noted, largest measuring ~[id number] in precarinal region and few of them shows calcifications within No axillary lymphadenopathy is noted. No suspicious lytic or sclerotic osseous lesions are identified. Degenerative changes in visualised spine Sliding hiatal hernia IMPRESSION: No evidence of pulmonary embolism A patchy area of subpleural soft tissue opacity in right upper lobe with tiny ground glass opacities adjacnet to it- could be of infective etiology. Few bibasal atelectasis bands Few mildly enlarged mediastinal and bilateral hilar lymphnodes noted, largest measuring ~[id number] in precarinal region and few of them shows calcifications within. Few subcentimetric calcifications in left upper and bilateral lower lobes Electronically signed by Josias Perez 08-18-2025 02:49 AM Chest X-Ray 08/18/25 00:16 EXAM: XR chest 1V portable CLINICAL HISTORY: Sepsis TECHNIQUE: An X-ray image of the chest is obtained in AP projection. COMPARISON: 08/08/2025. FINDINGS: Pulmonary Parenchyma: Multiple nodules were noted at the left mid and upper lung zones, less than 5 mm in diameter. No evidence of consolidation or collapse. No evidence of pleural effusion or pleural thickening. Heart and Mediastinum: Heart size and shape are normal. No mediastinal widening or masses. No hilar or mediastinal lymphadenopathy. Bony Thorax: Bony thorax appears intact without fractures or deformities. 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 Soft Tissues: Soft tissues overlying the chest wall are unremarkable. IMPRESSION: 1. No acute cardiopulmonary abnormalities are identified. 2. Multiple calcified nodules were noted at the left mid and upper lung zones, less than 5 mm in diameter. Unchanged. These are benign. 3. No significant interval changes are noted compared with the prior study. Electronically signed by Gurinder Mcfarlane 08-18-2025 02:34 AM Medications Administered 1.5L NSS Zosyn 4.5g IV Zofrna 4mg IV Morphine 4mg IV x 2 Acetaminophen 1g IV Code Status & VTE Plan Code Status Full Supervising Physician Co-Signing Physician Notes Attending addendum: I have physically seen this patient, have supervised the TIMOTHY's activities, and agree with the H&P unless as otherwise noted. Assessment and Plan: The patient is a 69-year-old male with a past medical history including lumbar stenosis with claudication, BPH, ED, UC, recent E. coli bacteremia, and recent sepsis. He presents to the emergency department with right-sided abdominal pain. Significant laboratory abnormalities: WBC 18.91, sodium 126, creatinine 1.73, glucose 137, BUN 24, magnesium 1.9. Radiology studies with chest x-ray showing benign nodules. CT angiography chest PE protocol negative for PE, but did show medial and bilateral hilar lymphadenopathy and question of right upper lobe infiltrate. CT abdomen pelvis shows stable hernias, and question of bladder infection. Right pelvic ureteral stone with mild right hydro. #Right pelvic ureteral stone/mild right hydro nephrosis- Patient recent sepsis from UTI and also episode of E. coli bacteremia during hospital admissions from 08/08-08/10/2025. Follow urine culture and sensitivity Patient has been taking Augmentin as directed with course of treatment completed. CT suggest possible developing pyelonephritis N.p.o. LR 125 mL/h Zofran 4 mg IV every 6 hours as needed Acetaminophen 1 g IV every 8 hours as needed for mild pain or fever Morphine IV as needed for moderate to severe pain Zosyn 4.5 g IV every 8 hours Consult neurology #Hyponatremia- Sodium 126, serum osmolality 274, urine osmole 536 Symptoms most consistent with hydrochlorothiazide effect, as opposed to SIADH. Hold lisinopril/HCTZ Sodium chloride 1 g p.o. twice daily IV fluids as above Repeat laboratories in a.m. #Right upper lobe pneumonia- COVID/flu/RSV testing negative Chest x-ray with calcified pulmonary nodules CTA chest PE protocol was negative for PE likely right upper lobe pneumonia Antibiotics as above MRSA swab Incentive spirometry DuoNebs every 2 hours as needed #Hypertension- Hold lisinopril HCTZ as above continue metoprolol with hold parameters #BPH- Continue tamsulosin #UC- Vedolizumab as outpatient PG Care Time/CCT Total # of Minutes Spent Total Time Spent with Patient: Total time spent is greater than 50% in coordination of care (as documented) at patient's floor/unit and/or counseling patient: Coding Level of Care Code 60155 INT INP/OBS CARE MIN Diagnoses Hydronephrosis with obstructing calculus N13.2 PRUDENCIO (acute kidney injury) N17.9 Hyponatremia E87.1 Pneumonia J18.9
--- NOTE | 2025-08-18 03:35 | Emergency Department Note ---
ED Visit Note I was consulted in regards to the patient's presentation and plan of care by the Advanced Practice Provider. I engaged in a detailed/meaningful discussion with the Advanced Practice Provider in regards to this patient's workup and plan of care. I performed a substantiative portion of the medical decision making following discussion with the Advanced Practice Provider. Please see the Advanced Practice Provider's separate documentation for full details of the patient's visit. I agree with the assessment and plan of Katy Mazariegos PA-C. Amarjit Ratliff, DO Emergency Medicine .
[2025-08-18 03:58] LABS: Influenza A virus by PCR Negative (Neg); Influenza B virus by PCR Negative (Neg); SARS CoV2 RNA(COVID-19) Ceph NEGATIVE (Negative)
[2025-08-18] MEDS ORDERED: NALOXONE HCL 0.4 MG/1 ML VIAL/CARP IV PRN (04:07)
[2025-08-18] MEDS ORDERED: MoRPHine SULFATE 2 MG/ML CARP IV PRN (04:07)
--- NOTE | 2025-08-18 04:11 | Urology Consultation ---
Date of Consultation August 18, 2025 Assessment & Plan (1) Ureterolithiasis: Patient is being admitted on the hospitalist service. From a urologic perspective we recommend the following: The patient has been initiated on antibiotics in form of Zosyn and vancomycin which should continue. Appropriate cultures have been sent and can be used to tailor antibiotic therapy Patient has evidence of acute kidney injury which is likely due to underlying infective etiology along with nausea and vomiting poor oral intake. Nephrotoxic medications to be avoided The patient should be hydrated with intravenous fluids Provide analgesics Provide antiemetics Recommend keeping the patient n.p.o. for the present time. He will be evaluated by urology dayshift team and a determination will be made if patient can undergo cystoscopy with possible stent placement due to his obstructing kidney stone Additional recommendations were forthcoming based on his clinical course as it unfolds (2) Hyponatremia: (3) Hydronephrosis with obstructing calculus: (4) Pneumonia: (5) Renal colic on right side: (6) E. coli bacteremia: (7) Acute kidney injury: (8) Sepsis: (9) Ulcerative colitis: (10) Benign prostatic hyperplasia (BPH) with straining on urination: Plan Attending note: Patient presenting with worsening pain discomfort UTI and bother has known history of stones. Had CT showing obstructing stone in the right UPJ. Additionally has a large stone on the left side. Had previously been admitted for significant illness with UTI earlier in the month. Patient independently assessed, examined, interviewed, and evaluated. Agree with note as above. Patient's vitals and labs were all reviewed. Pertinent values in the HPI and plan section. Hemoglobin 11.9. Creatinine 1.61. White count 16.9. Vitals all stable with blood pressure 130/79. Pulse today 58 PFT reviewed respirations 18. Temperature 36.7. Oxygen saturation 96% on room air. Imaging was reviewed interpreted by myself. CT imaging shows obstructing stone with hydronephrosis. Otherwise agree with read. Vitals were reviewed. Discussed findings extensively with patient and family. Reviewed with nurse practitioner as well as consulting physicians/team. Patient's complicated medical and surgical history was reviewed and summarized above. Patient's surgical, medical, social, and family history were all reviewed with pertinent values as above. Discussed patient's current diagnosis as well as concerns and issues. Reviewed different options moving forward. Discussed potential risks and benefits as well as possible options and concerns. Reviewed potential surgical options and interventions. Discussed potential issues and concerns related to intervention. Risk and benefits were discussed extensively with patient and any available family. Discussed potential risks related to anesthesia. Discussed risks of bleeding infection and injury. Discussed options for conservative measure and maximum expulsion medical therapy and symptom controlled. Discussed ESWL. Discussed Ureteroscopy with extraction and/or laser lithotripsy. Risks and benefits were discussed. Stone free rates were also discussed as well as possibility of multiple procedures. Ureteral stents were discussed as well as post-operative issues and pain management. All questions were answered. Risks and benefits discussed at length for procedure. These include bleeding, infection, injury to surrounding tissues or organs, and risks associated with anesthesia. Patient states understanding and agrees to proceed. Will sign consent and proceed. Plan for cystoscopy with possible right ureteroscopy and stone treatment and stent placement. Due to patient's acute illness may not be able to move forward with stone treatment. Will try to determine at time of procedure. Patient understands potential he may only end up with stent today. May need to have further intervention on stone. Additionally discussed stone on the contralateral kidney. The stone does appear to be slightly larger. Did discuss issues if the other side starts to move as well. All questions answered. Patient's complicated medical and surgical history is reviewed and summarized above all imaging was reviewed interpreted by myself all labs were reviewed with pertinent positive negatives in the HPI and plan section. Plan to move forward with urgent stent placement possible stone treatment. History of Present Illness Reason for Consultation: Nephrolithiasis with recent UTI and bacteremia History of Present Illness This is a 69-year-old male who presented to the hospital secondary to right- sided flank pain that radiated to his abdomen. It is noteworthy to mention that the patient was recently admitted to [facility] from August 08 through August 10. During this time the patient was found to have E. coli bacteremia and an E. coli urinary tract infection and he was treated appropriately with antibiotics. Cultures during this admission showed that he did have an E. coli urinary tract infection which was pansensitive. He was also noted to have E. coli bacteremia with the same organism. A CT scan of the abdomen pelvis during this admission showed the patient had a nonobstructing 11 mm kidney stone in the left pole of his left kidney. He also had an 8 mm nonobstructing kidney stone on the right-hand side. The patient was treated as an inpatient with antibiotics and ultimately di scharged home on antibiotics in the form of Augmentin and he had plans to see Dr. Van Villa about any physician group urology in the near future. He did present back to the hospital today secondary to the above noted right flank pain which radiated to his abdomen. He specifically denies any fevers, shakes, or chills. He notes that he is having urinary frequency but denies any dysuria and feels as though he can empty his bladder completely. He notes that he has been taking his antibiotics as prescribed. Since arrival to the hospital today he has had labs and imaging which I independently reviewed. CT scan of the chest showed no evidence of pulmonary emboli but the patient was noted to have a subpleural area of soft tissue opacity in the right upper lobe with a tiny ground glass opacity with the inability to rule out an infective etiology. A CT scan of the abdomen pelvis showed the patient had a 7.8 x 5.4 kidney stone at the right ureteropelvic junction with right hydronephrosis and perinephric fat stranding. There was concern of stranding of his bladder suggestive of an ongoing urinary tract infection. Labs included CBC were white blood cell count was elevated 18.9. His hemoglobin was 13.8 and his hematocrit was 40.0. Platelet count is 480,000. Chemistry profile showed sodium was 126 with a potassium of 4.2. BUN and creatinine were 24 and 1.7. Lactic acid was not elevated and the urinalysis only had trace leukocyte esterase but was otherwise not indicative of infection. He was tested for COVID, influenza A and B, as well as RSV all of which were negative. At the time of my interview he was resting comfortably in bed. He was in no distress. Allergies Allergy/AdvReac Type Severity Reaction Status Date / Time No Known Allergies Allergy Unknown NONE Verified 08/18/25 12:34 Home Medications Medication Instructions Recorded Confirmed Type tamsulosin 0.4 mg capsule 0.4 mg PO DAILY #30 caps 12/16/24 08/18/25 Rx lisinopril 20 1 tab PO DAILY 08/08/25 08/18/25 History mg-hydrochlorothiazide 12.5 mg tablet metoprolol succinate 100 mg 100 mg PO DAILY 08/08/25 08/18/25 History tablet,extended release 24 hr vedolizumab 300 mg intravenous 0 mg IV .Q8WKS 08/08/25 08/18/25 History solution amoxicillin 875 mg-potassium 1 tab PO BID 12 days #25 tabs 08/10/25 08/18/25 Rx clavulanate 125 mg tablet Patient History Medical History Hiatal hernia Surgical History History of back surgery Family History Father Cancer Mother Hypertension Brother Heart disease Social History Smoking Status: Never smoker Hx Alcohol Use: No Hx Substance Use: No Preferred Language: Afghan Communication Ability: Effective Executive Search Consultant Required: No Beliefs That Will Affect Care: None Current Living Situation: Spouse current occupational status: retired Other Information That Helps Us Care for You: No Feels Safe at Home: Yes Safety Concerns: Feels Safe At This Time Assistive Devices: Denture - Upper and Denture - Lower Review of Systems Review of Systems: All systems reviewed & are unremarkable except as noted in HPI & below Physical Exam Constitutional: WD/WN, vitals as above Eyes: no conjunctival abnormality ENMT: Ears: no hearing impairment and no external ear abnormality Mouth: no oropharynx abnormality Neck: trachea midline Respiratory: normal respiratory effort; no respiratory distress and no labored breathing Cardiovascular: Rate/Rhythm: regular rate and regular rhythm Gastrointestinal (Abdomen): Soft and nontender to palpation Musculoskeletal: No calf tenderness Skin: no rashes Neurologic: moves all extremities Psychiatric: A+Ox3, euthymic affect Genitourinary: Slight CVA tenderness noted with percussion on the right. No CVA tenderness with percussion on the left Results & Data Vital Signs (Past 12 Hours) Vital Signs Temp Pulse Resp BP Pulse Ox O2 Del Method 08/18/25 03:30 65 12 131/75 95 08/18/25 03:00 66 16 136/85 98 08/18/25 02:30 64 18 120/68 94 08/18/25 02:00 66 12 122/71 95 08/18/25 01:30 66 15 125/72 95 08/18/25 01:00 73 13 144/76 H 98 Room Air 08/18/25 00:30 72 13 159/80 H 08/18/25 00:30 96 Room Air 08/18/25 00:28 74 08/18/25 00:05 37.1 C 69 16 142/98 H 97 Room Air PG Care Time/CCT Total # of Minutes Spent Total Time Spent with Patient: Total time spent is greater than 50% in coordination of care (as documented) at patient's floor/unit and/or counseling patient: Coding Level of Care Code 28474 INT INP/OBS CARE 3/75MIN Diagnoses Ureterolithiasis N20.1 Hyponatremia E87.1 Hydronephrosis with obstructing calculus N13.2 Pneumonia J18.9 Renal colic on right side N23 E. coli bacteremia R78.81; B96.20 Acute kidney injury N17.9 Sepsis due to Escherichia coli with acute renal failure without septic shock, unspecified acute renal failure type A41.51; R65.20; N17.9 Acute renal failure type: unspecified Sepsis acute organ dysfunction status: with acute organ dysfunction Sepsis type: Escherichia coli Severe sepsis acute organ dysfunction type: acute renal failure Severe sepsis shock status: without septic shock Ulcerative colitis without complications, unspecified location K51.90 Digestive disease complication type: without complication Ulcerative colitis location: unspecified ulcerative colitis location Benign prostatic hyperplasia (BPH) with straining on urination N40.1; R39.16 (8) Sepsis Acute renal failure type: unspecified Sepsis acute organ dysfunction status: with acute organ dysfunction Sepsis type: Escherichia coli Severe sepsis acute organ dysfunction type: acute renal failure Severe sepsis shock status: without septic shock Qualified Code(s): A41.51 - Sepsis due to Escherichia coli [E. coli]; R65.20 - Severe sepsis without septic shock; N17.9 - Acute kidney failure, unspecified (9) Ulcerative colitis Digestive disease complication type: without complication Ulcerative colitis location: unspecified ulcerative colitis location Qualified Code(s): K51.90 - Ulcerative colitis, unspecified, without complications
[2025-08-18] MEDS: LACTATED RINGER'S 1,000 ML IV SCH ×2 (04:39→17:43)
[2025-08-18] MEDS ORDERED: ALBUT/IPRATROP 3MG/0.5MG NEB 3 ML VIAL NEB PRN (04:43)
[2025-08-18] MEDS: SODIUM CHLORIDE 1 GM TABLET PO SCH ×2 (05:03→08:36)
[2025-08-18] MEDS: PIPERACILLIN/TAZOBACTAM 4.5 GM/100 ML BAG IV SCH (05:24)
[2025-08-18 05:30] LABS: Hematocrit (blood only) 34.3 % (42.0-52.0); Hemoglobin 11.9 g/dL (14.0-18.0); Mean Corpuscular Hemoglobin 29.7 pg (25.0-34.0); Mean Corpuscular Volume 85.5 fL (80.0-100.0); Platelet Count 415 K/uL (130-400); RDW Standard Deviation 39.8 fL (36.4-46.3); Red Blood Count 4.01 M/uL (4.70-6.10); White Blood Count 16.90 K/ul (4.8-10.8)
[2025-08-18 05:43] LABS: Anion Gap 7.0 (3-11); Blood Urea Nitrogen 24.0 mg/dl (6-23); Calcium 8.7 mg/dl (8.6-10.3); Carbon Dioxide 22.0 mmol/L (21-32); Chloride 98.0 mmol/L (98-107); Creatinine Clr Calc Pharmacy 47.5 ml/min; Glucose 124.0 mg/dl (70-99(Fasting)); Potassium 4.5 mmol/L (3.5-5.1); Sodium 127.0 mmol/L (136-145)
[2025-08-18] MEDS: MoRPHine SULFATE 4 MG/ML 1 ML CARP\\VIAL IV PRN (07:12)
[2025-08-18] MEDS: METOPROLOL SUCC 50MG EXT REL TAB PO SCH (08:36)
[2025-08-18] MEDS: TAMSULOSIN HCL 0.4 MG CAP PO SCH (08:36)
--- NOTE | 2025-08-18 08:36 | Urology Progress Note ---
Date of Service August 18, 2025 Assessment & Plan (1) Hydronephrosis with obstructing calculus: Plan: wbc 16.9, hgb 11.9 BUN/cr 24/1.61 Blood cultures pending Urine culture ordered today. Na 128 today. Continue antibiotics. NPO. Discussed treatment options including observation vs ESWL vs URS and stenting, possible stone extraction. Discussed the possibility of needing additional surgery to address the stone at a later date if just stenting today. Discussed potential risks, complications of surgery. Recommend proceeding with surgery. Cystoscopy, retrograde pyelogram, ureteroscopy and right ureteral stenting, possible stone extraction. Discussed treatment of the left renal stone at a later date as well. (2) Pneumonia: (3) Ureterolithiasis: (4) Renal calculus, left: Admission and Anticipated Discharge Date Admission Date: August 18, 2025 Subjective 69 year old patient with right UPJ calculus, recent UTI, left renal calculus. Continues to have right lower quadrant and flank pain. Pain improved some with medication. Denies dysuria or hematuria. Physical Exam Physical Exam: alert and oriented. NAD. vital signs stable. Temp 37.2 this morning. Right abdominal and flank tenderness. No tenderness on the left. Results & Data Vital Signs (Past 12 Hours) Vital Signs Temp Pulse Pulse Resp BP BP Pulse Ox 08/18/25 07:17 57 L 21 127/73 92 08/18/25 07:10 55 L 08/18/25 05:20 08/18/25 05:20 37.2 C 63 16 130/76 96 08/18/25 04:40 36.7 C 60 16 127/77 93 08/18/25 04:11 61 08/18/25 03:30 65 12 131/75 95 08/18/25 03:00 66 16 136/85 98 08/18/25 02:30 64 18 120/68 94 08/18/25 02:00 66 12 122/71 95 08/18/25 01:30 66 15 125/72 95 08/18/25 01:00 73 13 144/76 H 98 08/18/25 00:30 72 13 159/80 H 08/18/25 00:30 96 08/18/25 00:28 74 08/18/25 00:05 37.1 C 69 16 142/98 H 97 Pulse Ox O2 Del Method O2 Del Method 08/18/25 07:17 Room Air 08/18/25 07:10 08/18/25 05:20 94 Room Air 08/18/25 05:20 Room Air 08/18/25 04:40 Room Air 08/18/25 04:11 08/18/25 03:30 08/18/25 03:00 08/18/25 02:30 08/18/25 02:00 08/18/25 01:30 08/18/25 01:00 Room Air 08/18/25 00:30 08/18/25 00:30 Room Air 08/18/25 00:28 08/18/25 00:05 Room Air PG Care Time/CCT Total # of Minutes Spent Total Time Spent with Patient: Total time spent is greater than 50% in coordination of care (as documented) at patient's floor/unit and/or counseling patient: Coding Level of Care Code 99086 SUB INP/OBS CARE 2/35MIN Diagnoses Hydronephrosis with obstructing calculus N13.2 Pneumonia J18.9 Ureterolithiasis N20.1 Renal calculus, left N20.0
--- NOTE | 2025-08-18 09:05 | Hospitalist Progress Note ---
Date of Service August 18, 2025 Assessment & Plan (1) Hydronephrosis with obstructing calculus: (2) PRUDENCIO (acute kidney injury): (3) Hyponatremia: Plan 69-year-old male PMHx lumbar stenosis with claudication, BPH, ED, UC, recent E. coli bacteremia, and recent sepsis presenting for R sided abdominal pain. Most recent hospital admission 08/08/2025. Evaluation significant for evidence of leukocytosis with normal lactate and procal. Hyponatremia noted. Renal functions are elevated. Imaging suggest ? PNA developing as well as R sided hydronephrosis with perinephric fat stranding. Admission for pain management, IV abx, management PRUDENCIO and hyponatremia. #Hydronephrosis/Perinephric fat stranding/PRUDENCIO RUQ/R flank pain starting day of arrival. Recent sepsis from UTI, also E. coli bacteremic during hospital admission 08/08/2025 until 08/10/2025. Been taking Augmentin since discharge for completed course of treatment. No LUTS. Perinephric fat stranding noted, ? 2/2 obstruction versus developing pyelonephritis. Will cover with IV antibiotics regardless. Admission also for further pain control, as well as PRUDENCIO. - CBC WBC 18.91; CMP creatinine 1.73, BUN 24; lactate 1.3; procalcitonin 0.32 - BMP am - UA negative for infection - CTAP partially distended urinary bladder wall thickening and mild perivascular fat stranding, calculus R pelvic ureteric junction and mild right hydronephrosis and perinephric fat stranding, calculus lower pole L kidney - NPO - IVF LR @ 125 mL/hr - Zofran prn N/V - Acetaminophen prn fever/pain, morphine prn severe pain - Zosyn IV - continue - Urology consulted - appreciate input + recs #Hyponatremia Decreased intake recently and illness. In setting of PRUDENCIO. - Na 126, glucose 137 - Serum osmol 274, Urine Na pending, Urine Osmol 536 - Hold lisinopril-HCTZ - NaCl tablets 1 g po BID initiated - IVF as above #? PNA Patient with nonproductive cough starting day after his most recent discharge. No history of COVID. No additional URI symptoms, no F/C. ? PNA. - CBC leukocytosis 18.91, lactate 1.3, procalcitonin 0.32 - COVID/flu/RSV negative - CXR no acute findings, calcified nodules left mid and upper lung zones (benign, unchanged) - Chest CTA no PE, patchy area subpleural soft tissue opacity RUL with ground glass opacities (+/- infective), bibasal atelectatic bands, few calcifications left upper and bilateral lower lobes - IS - DuoNebs prn #HTN- Lisinopril-HCTZ, metoprolol - hold lisinopril-HCTZ at time of admission, continue metoprolol #BPH- Tamsulosin - continue #UC- Vedolizumab [id number] Dispo: Admit, PCU VTE Prophylaxis: SCDs Admission and Anticipated Discharge Date Admission Date: August 18, 2025 Subjective pt with improvement of pain, is scheduled for cysto and stent placement in the afternoon 08/18/25 Physical Exam Physical Exam: very minor residual right flank pain cardiac is regular lungs are clear Results & Data Results & Data Vital Signs (Past 12 Hours) Vital Signs Temp Pulse Pulse Resp BP BP Pulse Ox 08/18/25 07:17 57 L 21 127/73 92 08/18/25 07:10 55 L 08/18/25 05:20 08/18/25 05:20 98.9 F 63 16 130/76 96 08/18/25 04:40 98.1 F 60 16 127/77 93 08/18/25 04:11 61 08/18/25 03:30 65 12 131/75 95 08/18/25 03:00 66 16 136/85 98 08/18/25 02:30 64 18 120/68 94 08/18/25 02:00 66 12 122/71 95 08/18/25 01:30 66 15 125/72 95 08/18/25 01:00 73 13 144/76 H 98 08/18/25 00:30 72 13 159/80 H 08/18/25 00:30 96 08/18/25 00:28 74 08/18/25 00:05 98.8 F 69 16 142/98 H 97 Pulse Ox O2 Del Method O2 Del Method 08/18/25 07:17 Room Air 08/18/25 07:10 08/18/25 05:20 94 Room Air 08/18/25 05:20 Room Air 08/18/25 04:40 Room Air 08/18/25 04:11 08/18/25 03:30 08/18/25 03:00 08/18/25 02:30 08/18/25 02:00 08/18/25 01:30 08/18/25 01:00 Room Air 08/18/25 00:30 08/18/25 00:30 Room Air 08/18/25 00:28 08/18/25 00:05 Room Air PG Care Time/CCT Total # of Minutes Spent Total Time Spent with Patient: Total time spent is greater than 50% in coordination of care (as documented) at patient's floor/unit and/or counseling patient: Coding Level of Care Code None Diagnoses Hydronephrosis with obstructing calculus N13.2 PRUDENCIO (acute kidney injury) N17.9 Hyponatremia E87.1
--- NOTE | 2025-08-18 12:43 | Anesthesiology Consultation ---
Date of Service August 18, 2025 Assessment & Plan (1) Encounter for pre-operative examination: Chart Review Chart Review: Acceptable Risk for Surgery and Patient NOT seen in Pre Admission Testing Consults Requested none History Surgery Operation Date: 08/18/25 07:00 Proposed Procedures p Cystoscopy, Right Ureteroscopy, Retrograde Pyelogram, Possible Laser Lithotripsy, Stone Extraction, Stent Placement - Cristian Underwood, Height/Weight Height: 6 ft Weight: 88.6 kg Allergies Allergy/AdvReac Type Severity Reaction Status Date / Time No Known Allergies Allergy Unknown NONE Verified 08/18/25 12:34 Medications Home Medications Medication Instructions Recorded Confirmed Last Taken tamsulosin 0.4 mg capsule 0.4 mg PO DAILY #30 caps 12/16/24 08/18/25 08/17/25 lisinopril 20 1 tab PO DAILY 08/08/25 08/18/25 08/17/25 mg-hydrochlorothiazide 12.5 mg tablet metoprolol succinate 100 mg 100 mg PO DAILY 08/08/25 08/18/25 08/17/25 tablet,extended release 24 hr vedolizumab 300 mg intravenous 0 mg IV .Q8WKS 08/08/25 08/18/25 Unknown solution amoxicillin 875 mg-potassium 1 tab PO BID 12 days #25 tabs 08/10/25 08/18/25 08/17/25 clavulanate 125 mg tablet Active Medications Generic Name Dose Route Start Last Admin Trade Name Freq PRN Reason Stop Dose Admin Piperacillin Sod/Tazobactam Sod 4.5 gm in 100 mls @ 25 mls/hr 08/18/25 06:00 08/18/25 08:54 Zosyn IV 08/25/25 05:59 Infused Q8H MARYAN Infusion Protocol Metoprolol Succinate 100 mg 08/18/25 09:00 08/18/25 08:36 Metoprolol Succ 50mg Ext Rel Tab PO 09/17/25 08:59 100 mg DAILY MARYAN Administration Morphine Sulfate 4 mg 08/18/25 04:07 08/18/25 11:28 Morphine Sulfate 4 Mg/Ml 1 Ml Carp\Vial IV 09/01/25 04:06 4 mg Q3H PRN Administration Pain (6,7,8,9,10) Sodium Chloride 1 gm 08/18/25 10:00 08/18/25 08:36 Sodium Chloride 1 Gm Tablet PO 09/17/25 09:59 1 gm BID MARYAN Administration Tamsulosin HCl 0.4 mg 08/18/25 09:00 08/18/25 08:36 Tamsulosin Hcl 0.4 Mg Cap PO 09/17/25 08:59 0.4 mg DAILY MARYAN Administration Past Medical History Medical History Hiatal hernia Past Family History Family History Father Cancer Mother Hypertension Brother Heart disease Past Surgical History Surgical History History of back surgery Social History Smoking Status: Never smoker Hx Alcohol Use: No Hx Substance Use: No Physical Exam Vital Signs Last Vital Signs Temp 98.1 F 08/18/25 11:19 Pulse 58 L 08/18/25 11:19 Resp 18 08/18/25 11:19 BP 109/72 08/18/25 11:19 Pulse Ox 98 08/18/25 11:19 O2 Del Method Room Air 08/18/25 11:19 Testing Laboratory Results 08/18/25 04:49 08/18/25 04:49 Urine Color Yellow 08/18/25 00:25 Urine Appearance Clear (Clear) 08/18/25 00:25 Urine pH 6.5 (4.5-7.5) 08/18/25 00:25 Ur Specific [place] 1.015 (1.000-1.030) 08/18/25 00:25 Urine Protein Trace (Negative) H 08/18/25 00:25 Urine Glucose (UA) Negative (Negative) 08/18/25 00:25 Urine Ketones Negative (Negative) 08/18/25 00:25 Urine Nitrite Negative (Negative) 08/18/25 00:25 Ur Leukocyte Esterase Trace (Negative) H 08/18/25 00:25 Urine WBC (Auto) 0-5 /hpf (0-5) 08/18/25 00:25 Urine RBC (Auto) 0-2 /hpf (0-2) 08/18/25 00:25 U Hyaline Cast (Auto) 0-2 /lpf (0-2) 08/18/25 00:25 U Epithel Cells (Auto) 0-2 /hpf (0-2) 08/18/25 00:25 Urine Bacteria (Auto) None Seen (None Seen) 08/18/25 00:25 08/18/25 00:34 POC Glucose (other) 131 H Electrocardiogram Date: 08/18/25 Findings: + NSR @ Chest X-Ray Date: 08/18/25 1. No acute cardiopulmonary abnormalities are identified. 2. Multiple calcified nodules were noted at the left mid and upper lung zones, less than 5 mm in diameter. Unchanged. These are benign. 3. No significant interval changes are noted compared with the prior study.
--- NOTE | 2025-08-18 14:46 | Electrocardiogram Report ---
Test Reason : Blood Pressure : */* mmHG Vent. Rate : 69 BPM Atrial Rate : 69 BPM P-R Int : 164 ms QRS Dur : 84 ms QT Int : 394 ms P-R-T Axes : 73 20 46 degrees QTcB Int : 422 ms Normal sinus rhythm Normal ECG When compared with ECG of 08-Aug-2025 11:47, Premature atrial complexes are no longer Present Confirmed by Edvin Ghotra ([id number]) on 08/18/2025 2:46:40 PM Referred By: REFERRED SELF Confirmed By: Edvin Ghotra
--- NOTE | 2025-08-18 14:48 | Electrocardiogram Report ---
Test Reason : Blood Pressure : */* mmHG Vent. Rate : 61 BPM Atrial Rate : 61 BPM P-R Int : 182 ms QRS Dur : 86 ms QT Int : 436 ms P-R-T Axes : 66 28 36 degrees QTcB Int : 438 ms Normal sinus rhythm Normal ECG When compared with ECG of 18-Aug-2025 00:24, (unconfirmed) No significant change was found Confirmed by Edvin Ghotra ([id number]) on 08/18/2025 2:47:50 PM Referred By: REFERRED SELF Confirmed By: Edvin Ghotra
[2025-08-18] MEDS ORDERED: PROMETHAZINE HCL 6.25 MG in SODIUM CHLORIDE 0.9% 50 ML IV PRN (15:16)
[2025-08-18] MEDS ORDERED: ATROPINE SULFATE 0.1 MG/ML 10ML SYR IV PRN (15:16)
[2025-08-18] MEDS ORDERED: ONDANSETRON INJ 2 MG/ML 2 ML VIAL IV PRN (15:16)
[2025-08-18] MEDS ORDERED: ONDANSETRON INJ 2 MG/ML 2 ML VIAL ONE (15:32)
[2025-08-18] MEDS ORDERED: PROPOFOL IV EMULSION 10 MG/ML 20 ML VIAL IV ONE ×2 (15:32→15:51)
[2025-08-18] MEDS: DIATRIZOATE MEGLUMINE 30% 100ML VIAL INSTIL ONE (16:00)
--- NOTE | 2025-08-18 16:09 | Operative Report ---
PG Post Operative Report Pre & Post Diagnosis Operation Date: 08/18/25 07:00 Pre-Op Diagnosis: Hydronephrosis with obstructing calculus Post-Op Diagnosis: Hydronephrosis with obstructing calculus I identified the patient and participated in the time-out.: Yes Procedure Operation Date: 08/18/25 07:00 Actual Procedures Cystoscopy with Right - Ureteroscopy, Retrograde Pyelogram, Laser Lithotripsy, Stone Extraction With Basket, Stent Placement - Cristian Underwood DO Surgeon Cristian Underwood, II, DO Ems Instructor None Estimated Blood Loss 1 Findings Consistent with Post-Op Diagnosis Stone destroyed to dust and small fragments and larger fragments removed. Specimens Stone Fragments - Right Ureteral Drains 6 Fr Multilength Anesthesia Type General Complications none Disposition Disposition: Recovery Room Indications Patient with bothersome stones. Risks and benefits discussed at length. Description of Procedure Patient was consented and brought back to the operating room. Patient was placed under anesthesia in the supine position and moved to the dorsal lithotomy position. Patient was prepped and draped in the regular sterile fashion. A time out was completed identifying the correct patient and procedure. A 30degree Cystoscope was placed into the bladder and the entire bladder was examined. The UO's were identified. The UO was cannulized with a catheter and a retrograde pyelogram was completed. A wire was then placed. There was some difficulty bypassing the area of obstruction in the ureter with the wire. Some manipulation was necessary the wire did advance however it was difficult to determine if it was sitting well in the renal pelvis. At this point it was decided to move forward with stone treatment. There was no significant debris there was some moderate inflammation seen within the bladder. A ureteral access sheath and second safety wire was placed. The flexible ureteroscope was taken into the ureter. The entire ureter and renal pelvis were examined. The stones were identified. The stone was lodged in the proximal ureter. It was able to be displaced and entered into the UPJ/renal pelvis. A laser fiber was selected and the stones were pulverized to dust and small fragments. Larger fragments were grasped and removed and sent for analysis. The entire area was once again examined. No residual large fragments or areas of concern were noted. The scope was slowly removed with the wire left in place. Contrast was placed through the scope for a pyelogram to assist in stent placement. The entire ureter was examined as the scope was slowly removed. No obstructions or other areas of concern were noted. With the wire in place, a 6 Fr Double J stent was placed. It was confirmed with fluoroscopy. With the stent in place, the bladder was emptied. The scope was removed. The patient was cleaned, aroused from anesthesia, and transferred to the pacu in stable condition having tolerated the procedure well with no complications. I was present and participated in all aspects of the procedure. The patient will be monitored in the PACU until transferred. Plan to remove stent in approximately 1 to 2 weeks. Patient additionally has large stone on the left side. May need to consider options for treatment of that stone. Can discuss at follow-up I attest to the content of the Intraoperative Record and any orders documented therein. Any exceptions are noted below.
--- NOTE | 2025-08-18 16:51 | Anesthesiology Progress Note ---
Date of Service August 18, 2025 Anesthesia Post Procedure Vital Signs Vital Signs: Temp Pulse Pulse Resp BP BP Pulse Ox 08/18/25 16:30 60 14 120/79 94 08/18/25 16:20 60 16 119/73 96 08/18/25 16:10 36.0 C L 64 18 112/78 97 08/18/25 12:53 36.8 C 59 L 18 126/82 96 08/18/25 11:19 36.7 C 58 L 18 109/72 98 08/18/25 10:00 58 L 08/18/25 09:43 08/18/25 09:39 36.7 C 58 L 18 130/79 96 08/18/25 07:17 57 L 21 127/73 92 08/18/25 07:10 55 L 08/18/25 05:20 08/18/25 05:20 37.2 C 63 16 130/76 96 08/18/25 04:40 36.7 C 60 16 127/77 93 08/18/25 04:11 61 08/18/25 03:30 65 12 131/75 95 08/18/25 03:00 66 16 136/85 98 08/18/25 02:30 64 18 120/68 94 08/18/25 02:00 66 12 122/71 95 08/18/25 01:30 66 15 125/72 95 08/18/25 01:00 73 13 144/76 H 98 08/18/25 00:30 72 13 159/80 H 08/18/25 00:30 96 08/18/25 00:28 74 08/18/25 00:05 37.1 C 69 16 142/98 H 97 Pulse Ox O2 Del Method O2 Del Method O2 Flow Rate 08/18/25 16:30 Room Air 08/18/25 16:20 Oxymask 3 08/18/25 16:10 Oxymask 6 08/18/25 12:53 Room Air 08/18/25 11:19 Room Air 08/18/25 10:00 08/18/25 09:43 Room Air 08/18/25 09:39 Room Air 08/18/25 07:17 Room Air 08/18/25 07:10 08/18/25 05:20 94 Room Air 08/18/25 05:20 Room Air 08/18/25 04:40 Room Air 08/18/25 04:11 08/18/25 03:30 08/18/25 03:00 08/18/25 02:30 08/18/25 02:00 08/18/25 01:30 08/18/25 01:00 Room Air 08/18/25 00:30 08/18/25 00:30 Room Air 08/18/25 00:28 08/18/25 00:05 Room Air Pain Intensity Right Lower Abdomen: Pain Intensity: 8 Right Abdomen: Pain Intensity: 6 Transfer of Care Handoff Completed per policy Notes Mental Status: alert / awake / arousable and participated in evaluation Patient Amnestic to Procedure: Yes Nausea / Vomiting: adequately controlled Pain: adequately controlled Airway Patency, RR, SpO2: stable & adequate BP & HR: stable & adequate Hydration State: stable & adequate Anesthetic Complications: no major complications apparent and Pt Satisfied with anesthetic care
[2025-08-18] MEDS: ONDANSETRON INJ 2 MG/ML 2 ML VIAL IV PRN (19:17)
[2025-08-18] MEDS: ACETAMINOPHEN 1,000 MG/100 ML VIAL IV PRN (20:16)
[2025-08-18 21:59] VITALS: RESP 18
--- NOTE | 2025-08-19 07:50 | Urology Progress Note ---
Date of Service August 19, 2025 Assessment & Plan (1) PRUDENCIO (acute kidney injury): (2) Ureterolithiasis: (3) Hydronephrosis with obstructing calculus: Plan: POD 1 Cystoscopy with Right - Ureteroscopy, Retrograde Pyelogram, Laser Lithotripsy, Stone Extraction With Basket, Stent Placement Pain improved. Has some dysuria and hematuria. Recommend continued flomax and pain control. Okay to discharge from urology perspective. Needs to follow up in 1-2 weeks in the office for stent removal and to discuss stone treatment on the left side Likely prefers ESWL for the left renal calculus. Labs ordered for this morning to follow PRUDENCIO Hyponatremia and pneumonia management per hospitalist service. Admission and Anticipated Discharge Date Admission Date: August 18, 2025 Subjective 69 year old patient POD 1 Cystoscopy with Right - Ureteroscopy, Retrograde Pyelogram, Laser Lithotripsy, Stone Extraction With Basket, Stent Placement with Dr Underwood. Doing fairly well this morning. Eating breakfast. Had some nausea after procedure but denies n/v now. Has some dysuria and hematuria. Feels he is emptying well. Physical Exam Physical Exam: alert and oriented. NAD VSS No back, flank or abdominal tenderness. Results & Data Vital Signs (Past 12 Hours) Vital Signs Temp Pulse Pulse Resp BP Pulse Ox O2 Del Method 08/19/25 07:19 36.9 C 71 18 103/63 95 Room Air 08/19/25 03:08 37.0 C 76 18 99/66 L 96 Room Air 08/19/25 00:11 79 08/18/25 21:54 37.5 C 90 18 100/65 90 Room Air 08/18/25 20:58 36.7 C 08/18/25 19:58 37.7 C H 92 H 20 114/73 93 Room Air PG Care Time/CCT Total # of Minutes Spent Total Time Spent with Patient: Total time spent is greater than 50% in coordination of care (as documented) at patient's floor/unit and/or counseling patient: Coding Level of Care Code 94368 SUB INP/OBS CARE 2/35MIN Diagnoses PRUDENCIO (acute kidney injury) N17.9 Ureterolithiasis N20.1 Hydronephrosis with obstructing calculus N13.2
[2025-08-19 09:44] LABS: Hematocrit (blood only) 35.6 % (42.0-52.0); Hemoglobin 12.3 g/dL (14.0-18.0); Mean Corpuscular Hemoglobin 29.8 pg (25.0-34.0); Mean Corpuscular Volume 86.2 fL (80.0-100.0); Platelet Count 394 K/uL (130-400); RDW Standard Deviation 41.5 fL (36.4-46.3); Red Blood Count 4.13 M/uL (4.70-6.10); White Blood Count 29.83 K/ul (4.8-10.8)
[2025-08-19 10:03] LABS: Anion Gap 9.0 (3-11); Blood Urea Nitrogen 23.0 mg/dl (6-23); Calcium 8.8 mg/dl (8.6-10.3); Carbon Dioxide 24.0 mmol/L (21-32); Chloride 97.0 mmol/L (98-107); Creatinine Clr Calc Pharmacy 39.2 ml/min; Glucose 139.0 mg/dl (70-99(Fasting)); Potassium 4.3 mmol/L (3.5-5.1); Sodium 130.0 mmol/L (136-145)
[2025-08-19 10:28] LABS: Immature Granulocytes # (auto) 0.25 K/uL (0.01-0.20); Immature Granulocytes % (auto) 0.8 %
--- NOTE | 2025-08-19 10:37 | Fluoroscopy Report ---
FL retrograde includes kub CLINICAL HISTORY: RT STENT COMPARISON STUDY: None FLUOROSCOPY TIME: 15 seconds FLUOROSCOPY IMAGES: 3 EXPOSURE DOSE: 5 mGy FINDINGS: Fluoroscopy was provided for urologic procedure. IMPRESSION: Intraoperative fluoroscopy. ACT 112: Negative or not required by law. Electronically signed by: Sergey Shepard M.D. 08/19/2025 10:36 AM
[2025-08-19 10:56] VITALS: TEMP 98.4
[2025-08-19 11:20] VITALS: BP 136/80; PULSE 68; O2SAT 96
--- NOTE | 2025-08-19 15:58 | Discharge Summary ---
Discharge Summary Date of Service August 19, 2025 Principal Dx & Hospital Course #1 = Principal Diagnosis (1) Hydronephrosis with obstructing calculus: (2) PRUDENCIO (acute kidney injury): (3) Hyponatremia: (4) Pneumonia: Plan 69-year-old male PMHx lumbar stenosis with claudication, BPH, ED, UC, recent E. coli bacteremia, and recent sepsis presenting for R sided abdominal pain. Most recent hospital admission 08/08/2025. Evaluation significant for evidence of leukocytosis with normal lactate and procal. Hyponatremia noted. Renal functions are elevated. Imaging suggest ? PNA developing as well as R sided hydronephrosis with perinephric fat stranding. Admission for pain management, IV abx, management PRUDENCIO and hyponatremia. #Hydronephrosis/Perinephric fat stranding/PRUDENCIO RUQ/R flank pain starting day of arrival. Recent sepsis from UTI, also E. coli bacteremic during hospital admission 08/08/2025 until 08/10/2025. Been taking Augmentin since discharge for completed course of treatment. No LUTS. Perinephric fat stranding noted, ? 2/2 obstruction versus developing pyelonephritis. did have cysto, laser lithotripsy and stone retrieval and stent. will need ECSW as outpt - UA negative for infection after procedure mild increase in Cr and spurious increase in WBC, will change antibiotic at discharge to Levaquin at the time of discharge #Hyponatremia, improving, will have salt tablets and outpt sodium check in one week Decreased intake recently and illness. In setting of PRUDENCIO. - Hold lisinopril-HCTZ at discharge - NaCl tablets 1 g po BID initiated #? PNA, pt without clinical pneumonia, ruled out No history of COVID. No additional URI symptoms, no F/C. ? PNA. - COVID/flu/RSV negative - CXR no acute findings, calcified nodules left mid and upper lung zones (benign, unchanged) #HTN- Lisinopril-HCTZ, metoprolol - hold lisinopril-HCTZ at time of admission, continue metoprolol #BPH- Tamsulosin - continue #UC- Vedolizumab [id number] Notes For Next Care Provider pt will have outpt labs to guage renal function, hold lisinipril hctz at dc and continue salt tablets his wbc is up but no diarrhea for c diff, on levaquin which will cover urine and lung Admission HPI Per Admitting Provider 69-year-old male PMHx lumbar stenosis with claudication, BPH, ED, UC, recent E. coli bacteremia, and recent sepsis presenting for R sided abdominal pain. Most recent hospital admission 08/08/2025. Reports onset of abdominal pain in the RUQ/R flank starting night of arrival. States that it started to wrap around to his back. Rates it a 10 out of 10 at its worst on the pain scale, currently 3 out of 10 on the pain scale. Describes it as sharp pain that is constant. He did have nausea all day and 1 episode of vomiting. No fever or chills, no change in bowel habits. He is without LUTS. He is still taking his antibiotics which were prescribed at discharge. Reports that he is coughing, no sputum production. No URI symptoms. The cough started the day after he was discharged from the hospital most recently. Without chest pain, SOB, palpitations, diarrhea/constipation, URI symptoms, LUTS, numbness/tingling, fever/chills, syncope, weakness, or falls. ED evaluation reveals CBC leukocytosis 18.91, H/H 13.8/40.0, plt 488; CMP Na 126, Cl 92, BUN 24, Cr 1.73, glucose 137, alk phos 123; lactate 1.3, procal 0.32; Mg 1.9, Ca 9.8, Phosphorus 3.5; serum osmol 274, urine osmol 536; UA without infection; CXR no acute findings, multiple calcified nodules L mid and upper lungs (benign, unchanged); Chest CTA no PE, RUL patchy area of subpleural soft tissue opacity (? infectious), bibasilar atelectatic bands, enlarged mediastinal/bilateral hilar lymph nodes with some calcifications within, few subcentimetric calcifications L upper and bilateral lower lobes; CTAP sliding hiatal hernia (stable), uncomplicated bilateral inguinal hernias L > R (stable), partially distended urinary bladder/thickening/perivascular fat stranding (infective, ongoing), calculus in R pelviureteric junction mild R hydronephrosis and perinephric fat stranding, calculus lower pole L kidney, hypodense cysts bilateral kidneys (stable).; Provided with 1.5L NSS, Zosyn 4.5g IV, Zofran 4mg IV, morphine 4mg IV x 2, and acetaminophen 1g IV in ED. Please see Dr. Thompson's attestation for adjustments/additions to treatment plan. Discharge Exam awake and alert, no complaints abd is soft and llq mildly tender at this time Discharge Plan Discharge Items Patient Disposition: Home - Self-Care Reason For Visit: HYDRONEPHROSIS D/T STONE, PNA, PRUDENCIO Discharge Diagnosis: renal colic blocked ureter with renal stone s/p cystoscopy and laser lithotripsy and stone extraction and ureteral stent - Dr Underwood Condition on Discharge: Fair Activity: Per Instructions section Activity Comment: rest and recover, plenty of fluids Non-emergency contact: Primary Care Provider and Urologist Call non-emergency contact if: your symptoms worsen Follow-up/Referrals: Mary Kay Jeronimo CRNP [Nurse Practitioner] - 09/02/25 Freddy Zayas PA-C [Outside Practitioners] - 09/23/25 3:00 pm Diet: Regular Ambulatory Orders: Basic Metabolic Panel (Routine) Timeframe: 5 Days Location: Determined by Patient Ordered By: Bala Hitchcock Attending Provider Instructions: What is a ureteral stent? Normally, urine passes from the kidneys to the bladder through a tube called the ureter. But sometimes the ureter can be blocked. The blockage may be caused by problems such as a kidney stone, a tumour, or an infection. A ureteral (say "etr-UXH-sby-ul") stent is a thin, hollow tube that is placed in the ureter to help urine pass from the kidney into the bladder. The stent keeps the ureter open. After the stent is placed, urine should flow better from your kidneys to your bladder. The stent may be left in place for several days. Or you may need it for several months. Your doctor will take it out when you no longer need it. Or, in some cases, it may be taken out at home. You may also need to have the stent replaced. What can you expect after placement? After the placement, you may have a small amount of blood in your urine for 1 to 3 days. While the stent is in place, you may have to urinate more often, feel a sudden need to urinate, or feel like you can't completely empty your bladder. You may feel some pain when you urinate or do strenuous activity. You also may notice a small amount of blood in your urine after strenuous activities. These side effects usually don't prevent people from doing their normal daily activities. You may have a thin string coming out of your urethra. This string is attached to the stent. Try not to pull on the string. It will be used to pull out the stent when you no longer need it. How is it removed? There are several ways to remove the stent. Some stents can be removed with an attached string that comes out of your urethra. In some cases, if your doctor recommends it, you will be able to remove the stent at home. Or your doctor will remove it with the string in the doctor's office or hospital. If there is no string, you will need to have a procedure to remove the stent. It's done using a thin, lighted tube called a cystoscope, or scope. The doctor inserts the scope into your urethra and on into the bladder. The scope allows the doctor to check areas of your bladder and urethra that usually don't show up well on X-rays. Your doctor can also insert tiny tools through the scope to remove the stent. You may get medicine that relaxes you or puts you in a light sleep. The area where the scope is inserted may be numb. You will probably be able to go home the same day. What can you expect after removal? After the stent removal, you may need to urinate often. You may have some burning during and after urination for a day or two. It may help to drink lots of fluids (unless your doctor tells you not to). This also helps prevent a urinary tract infection. Slightly pink urine is common for several days after removal. Ask your doctor about medicines for pain. Follow-up care is a byers part of your treatment and safety.Be sure to make and go to all appointments, and call your doctor or nurse advice line if you are having problems. It's also a good idea to know your test results and keep a list of the medicines you take. Addtl Glove Tagger Provider Instructions: please get blood work next week plenty of fluids and drink, try no to drink plain water, use gatoraide or soft drinks Pending Studies at Discharge: No Stand-Alone Forms: My [employer], Smoking Cessation Medications and DC Order Prescriptions: New oxycodone 10 mg tablet 10 mg PO Q8H PRN (Reason: pain) Qty: 10 0RF levofloxacin 500 mg tablet 500 mg PO DAILY 7 Days Qty: 7 0RF Continued tamsulosin 0.4 mg capsule 0.4 mg PO DAILY Qty: 30 11RF metoprolol succinate 100 mg tablet extended release 24 hr 100 mg PO DAILY vedolizumab 300 mg Recon Soln 0 mg IV .[id number] Held lisinopril-hydrochlorothiazide 20-12.5 mg tablet 1 tab PO DAILY Hold Instructions: Resume on 08/26/25. Provider's Order Discontinued amoxicillin-pot clavulanate 875-125 mg tablet 1 tab PO BID 12 Days Qty: 25 0RF Rx Instructions: STARTED 08/10/25 FOR 12 DAYS. Discharge Orders: Discharge Order (Routine); Ordered 08/19/25 Ordered By: Bala Mitchell Admission Data Admit Date/Time: 08/18/25 03:52 Attending Provider: Bala Mitchell Admit Provider: Garett Thompson Primary Care Provider: Kenny Najera Other Providers: Garett Thompson; Cristian Underwood Other Interventions: Discharge Summary Assessment (RN) Last Done: 08/19/25 11:32 Hospital Stay Data Consultations 08/18/25 02:51 ED Decision to Admit Stat 08/18/25 04:43 Consult Urology Routine Procedures Performed Operation Date: 08/18/25 07:00 Actual Procedures p Cystoscopy, Right - Ureteroscopy, Retrograde Pyelogram, Laser Lithotripsy, Stone Extraction With Basket,(Right) - Cristian Underwood DO s Stent Placement(Right) - Cristian Underwood DO Diagnostic Imagining Performed 08/18/25 FL retrograde includes kub Routine 08/18/25 00:16 CT Abd and Pelvis [CT abd pelvis IV con only] Stat CT angio chest PE protocol Stat Pending Results Patient Have Any Pending Studies at Discharge: No Discharge Instructions Given to Patient (Per Discharging Provider) What is a ureteral stent? Normally, urine passes from the kidneys to the bladder through a tube called the ureter. But sometimes the ureter can be blocked. The blockage may be caused by problems such as a kidney stone, a tumour, or an infection. A ureteral (say "piv-JVD-osg-ul") stent is a thin, hollow tube that is placed in the ureter to help urine pass from the kidney into the bladder. The stent keeps the ureter open. After the stent is placed, urine should flow better from your kidneys to your bladder. The stent may be left in place for several days. Or you may need it for several months. Your doctor will take it out when you no longer need it. Or, in some cases, it may be taken out at home. You may also need to have the stent replaced. What can you expect after placement? After the placement, you may have a small amount of blood in your urine for 1 to 3 days. While the stent is in place, you may have to urinate more often, feel a sudden need to urinate, or feel like you can't completely empty your bladder. You may feel some pain when you urinate or do strenuous activity. You also may notice a small amount of blood in your urine after strenuous activities. These side effects usually don't prevent people from doing their normal daily activities. You may have a thin string coming out of your urethra. This string is attached to the stent. Try not to pull on the string. It will be used to pull out the stent when you no longer need it. How is it removed? There are several ways to remove the stent. Some stents can be removed with an attached string that comes out of your urethra. In some cases, if your doctor recommends it, you will be able to remove the stent at home. Or your doctor will remove it with the string in the doctor's office or hospital. If there is no string, you will need to have a procedure to remove the stent. It's done using a thin, lighted tube called a cystoscope, or scope. The doctor inserts the scope into your urethra and on into the bladder. The scope allows the doctor to check areas of your bladder and urethra that usually don't show up well on X-rays. Your doctor can also insert tiny tools through the scope to remove the stent. You may get medicine that relaxes you or puts you in a light sleep. The area where the scope is inserted may be numb. You will probably be able to go home the same day. What can you expect after removal? After the stent removal, you may need to urinate often. You may have some burning during and after urination for a day or two. It may help to drink lots of fluids (unless your doctor tells you not to). This also helps prevent a urinary tract infection. Slightly pink urine is common for several days after removal. Ask your doctor about medicines for pain. Follow-up care is a byers part of your treatment and safety.Be sure to make and go to all appointments, and call your doctor or nurse advice line if you are having problems. It's also a good idea to know your test results and keep a list of the medicines you take. Total Time Total Time Spent Total Time Spent (In Minutes): I personally have spent greater than 30 minutes of time on the patient discharge today including review of tests, documentation, exam, and discussing treatment plan moving forward with the patient. Coding Level of Care Code 88012 INP/OBS DISCH >30 MIN Diagnoses Hydronephrosis with obstructing calculus N13.2 PRUDENCIO (acute kidney injury) N17.9 Hyponatremia E87.1 Pneumonia J18.9
== END 2025-08-19 14:02 | disposition home or self-care (01) | DRG 659 ==
LOC: ED 00:02 → SUATTDRO 03:52 → EDINP 03:52 → 2S 08:43